=== PATIENT | male | born 1935 | race Caucasian/White ===

== ENCOUNTER 2016-08-07 15:52 | Inpatient (IN) | payer OTHER ==
[~2016-08-07] VITALS: Ht 182.9 cm; Wt 86.0 kg
[~2016-08-07 15:52] MED LIST: ACET1TAB84 PO; ASPEC81 PO; CALC625T13 PO; CLOP1TAB15 PO; COEN1CAP17 PO; DOCU-94 PO; FINA5TAB PO; FLV1 PO; GABA-113 PO; GLC500 PO; LDDP5 TD; LISI-729 PO; LPR25 PO; OMEG10007 PO; PANT40TA PO; ROSU40TA PO; TERA5CAP PO; VLTG EXT
--- NOTE | 2016-08-07 17:05 | EMERGENCY ROOM VISIT NOTE ---
History Report prepared by Chi: Kalia Amezquita Under the Supervision of: Dr. Fabien Vides M.D. First contact with patient: 16:34 Chief Complaint: GI ASSESSMENT Stated Complaint: TARRY STOOL Nursing Triage Summary: black tarry stools for 3 wks, pt on plavix, pt was taking 2 baby asa every night but stopped 1 wk ago, went to see cardiology today whom sent pt to er, pt c/o sob History of Present Illness The patient is a 81 year old male who presents to the Emergency Room with complaints of persistent black stools occurring for the past few weeks. As per , he looks paler than normal. The patient denies any abdominal pain. He is on Plavix for a cardiac history. The patient had a bypass surgery in February 2016. There was no valve replacement. He had been doing well up until these past few weeks. He denies any prior history of bleeding. He is on Pantoprazole for antiulcer. For the past few days, the patient has been having intermittent left sided chest pain, shortness of breath, and dizziness. He has worsening chest pain and shortness of breath with exertion. The chest pain occurs with standing up from chair and getting out of bed. He describes the chest pain to be sharp which lasts for a few seconds. He denies any similar chest pain in the past. The shortness of breath normally lasts for a few minutes. He has improvement in chest pain and shortness of breath with rest. He has a history of asbestosis but denies any other lung disease. He denies any inhaler use. Yesterday, he felt very lightheaded at cardiac rehab. The patient recently stopped taking baby aspirin. The patient denies any fevers, urinary symptoms, or any other complaints. Source of History: patient, spouse/significant other Onset: a few weeks ago Position: other (global) Quality: other (black stools) Timing: other (persistent) Associated Symptoms: + SOB, + chest pain, No abdominal pain, No fevers, No urinary symptoms Review of Systems See HPI for pertinent positives & negatives. A total of 10 systems reviewed and were otherwise negative. Past Medical & Surgical Medical Problems: (1) CVA (cerebral vascular accident) (2) Hypertension (3) Pulmonary asbestosis (4) Unstable angina Surgical Problems: (1) Hx of angioplasty (2) S/P CABG x 5 Social History Problems: (1) History of angioplasty Family History Heart disease Social History Smoking Status: Former Smoker Alcohol Use: occasionally Drug Use: none Marital Status: Housing Status: lives with family Occupation Status: retired Current/Historical Medications Scheduled Aspirin Enteric Coated (Ecotrin Or Generic), 162 MG PO DAILY Clopidogrel (Plavix), 75 MG PO QAM Coenzyme Q10 (Ubidecarenone) (Co Q 10), 100 MG PO BID Docusate Sodium (Colace), 1 CAP PO BID Fiber (Fiber Select Gummies), 1 TAB PO DAILY Finasteride (Proscar), 5 MG PO HS Fish Oil ([place]-3), 1 CAP PO QAM Folic Acid (Folic Acid), 2 MG PO QAM Gabapentin (Neurontin), 300 MG PO BID Metformin HCl (Metformin HCl), 500 MG PO BID Metoprolol Tartrate (Lopressor), 25 MG PO BID Pantoprazole (Protonix), 40 MG PO QAM Rosuvastatin Calcium (Crestor), 40 MG PO HS Terazosin (Hytrin), 5 MG PO QPM Scheduled PRN Acetaminophen (Tylenol Arthritis Ext Rel), 650 MG PO Q8H PRN for Pain Diclofenac Sod (Voltaren), 2 APPLN EXT QID PRN for Pain Lidocaine (Lidocaine), 1 PATCH TD DAILY PRN for PRN Allergies Coded Allergies: Tramadol (Unverified Allergy, Unknown, Stroke-like symptoms, 08/07/16) Hydrocodone (Unverified Adverse Reaction, Unknown, Vicodin = stroke-like sxs, 08/07/16) Physical Exam Vital Signs Date Time Temp Pulse Resp B/P Pulse Ox O2 Delivery O2 Flow Rate FiO2 08/07/16 20:08 80 18 192/108 92 Room Air 08/07/16 18:28 72 18 149/84 94 Room Air 08/07/16 17:26 71 18 144/88 94 Room Air 08/07/16 17:02 71 08/07/16 15:56 36.4 82 18 161/82 96 Room Air Physical Exam GENERAL: Patient is in no acute distress. HEENT: No acute trauma, normocephalic atraumatic, mucous membranes moist, no nasal congestion, no scleral icterus. NECK: No stridor, no adenopathy, no meningismus, trachea is midline. LUNGS: Clear to auscultation bilaterally, no wheeze, no rhonchi, breath sounds equal. HEART: Without murmurs gallops or rubs, regular rate and rhythm. ABDOMEN: Soft, nontender, bowel sounds positive, no hernias, no peritonitis. RECTAL: Brown stool, heme negative. EXTREMITIES: No cyanosis or edema, full range of motion of all the joints without pain or difficulty, no signs for acute trauma. NEUROLOGIC: Oriented x 3, no acute motor or sensory deficits, no focal weakness. SKIN: No rash, no jaundice, no diaphoresis. Medical Decision & Procedures ER Provider Diagnostic Interpretation: X-ray results as stated below per interpretation by me and the radiologist: CHEST ONE VIEW PORTABLE HISTORY: EVALUATE ALTERED MENTAL STATUS/WEAKNESS COMPARISON: Chest 12/01/2015. FINDINGS: The heart is borderline enlarged. There are poststernotomy changes. No pleural effusions. No pneumothorax. No new focal lung consolidations. Stable calcified pleural plaques/nodules are again noted. IMPRESSION: No acute process. Electronically signed by: Dav Sorenson M.D. 08/07/2016 5:16 PM Dictated Date/Time: 08/07/2016 5:15 PM Laboratory Results 08/07/16 16:57 Red Blood Count 4.66, Mean Corpuscular Volume 86.5, Mean Corpuscular Hemoglobin 28.5, Mean Corpuscular Hemoglobin Concent 33.0, Mean Platelet Volume 10.6, Neutrophils (%) (Auto) 50.9, Lymphocytes (%) (Auto) 39.2, Monocytes (%) (Auto) 6.4, Eosinophils (%) (Auto) 3.1, Basophils (%) (Auto) 0.2, Neutrophils # (Auto) 3.08, Lymphocytes # (Auto) 2.37, Monocytes # (Auto) 0.39, Eosinophils # (Auto) 0.19, Basophils # (Auto) 0.01 08/07/16 16:57 Test 08/07/16 16:57 08/07/16 17:30 White Blood Count 6.05 K/uL (4.8-10.8) Red Blood Count 4.66 M/uL (4.7-6.1) Hemoglobin 13.3 g/dL (14.0-18.0) Hematocrit 40.3 % (42-52) Mean Corpuscular Volume 86.5 fL (80-100) Mean Corpuscular Hemoglobin 28.5 pg (25-34) Mean Corpuscular Hemoglobin Concent 33.0 g/dl (32-36) Platelet Count 164 K/uL (130-400) Mean Platelet Volume 10.6 fL (7.4-10.4) Neutrophils (%) (Auto) 50.9 % Lymphocytes (%) (Auto) 39.2 % Monocytes (%) (Auto) 6.4 % Eosinophils (%) (Auto) 3.1 % Basophils (%) (Auto) 0.2 % Neutrophils # (Auto) 3.08 K/uL (1.4-6.5) Lymphocytes # (Auto) 2.37 K/uL (1.2-3.4) Monocytes # (Auto) 0.39 K/uL (0.11-0.59) Eosinophils # (Auto) 0.19 K/uL (0-0.5) Basophils # (Auto) 0.01 K/uL (0-0.2) RDW Standard Deviation 50.9 fL (36.4-46.3) RDW Coefficient of Variation 16.0 % (11.5-14.5) Immature Granulocyte % (Auto) 0.2 % Immature Granulocyte # (Auto) 0.01 K/uL (0.00-0.02) Prothrombin Time 11.1 SECONDS (9.0-12.0) Prothromb Time International Ratio 1.0 (0.9-1.1) Activated Partial Thromboplast Time 26.1 SECONDS (21.0-31.0) Partial Thromboplastin Ratio 1.0 Anion Gap 9.0 mmol/L (3-11) Est Creatinine Clear Calc Drug Dose 60.5 ml/min Estimated GFR () 73.1 Estimated GFR (Non- 63.1 BUN/Creatinine Ratio 16.8 (10-20) Calcium Level 9.9 mg/dl (8.5-10.1) Magnesium Level 2.0 mg/dl (1.8-2.4) Total Bilirubin 0.5 mg/dl (0.2-1) Aspartate Amino Transf (AST/SGOT) 21 U/L (15-37) Alanine Aminotransferase (ALT/SGPT) 24 U/L (12-78) Alkaline Phosphatase 48 U/L (45-117) Troponin I < 0.015 ng/ml (0-0.045) Total Protein 7.2 gm/dl (6.4-8.2) Albumin 3.7 gm/dl (3.4-5.0) Globulin 3.5 gm/dl (2.5-4.0) Albumin/Globulin Ratio 1.1 (0.9-2) Thyroid Stimulating Hormone (TSH) 1.470 uIu/ml (0.300-4.500) Urine Color YELLOW Urine Appearance CLEAR (CLEAR) Urine pH 7.0 (4.5-7.5) Urine Specific [place] 1.012 (1.000-1.030) Urine Protein NEG (NEG) Urine Glucose (UA) NEG (NEG) Urine Ketones NEG (NEG) Urine Occult Blood NEG (NEG) Urine Nitrite NEG (NEG) Urine Bilirubin NEG (NEG) Urine Urobilinogen NEG (NEG) Urine Leukocyte Esterase NEG (NEG) Laboratory results reviewed by me. ECG Indication: chest pain, SOB/dyspnea Rate (beats per minute): 73 Rhythm: normal sinus Findings: ST depression (inferior and lateral), no ectopy Comparison ECG Date: December 02, 2015 Change: ST flattening is new when compared to December 02, 2015. ED Course 1634: The patient was evaluated in room A02. A complete history and physical exam was performed. 181: Upon reexamination the patient is doing well. I discussed results and treatment plan with the patient. He verbalizes agreement and understanding. The patient will be evaluated for further management. 182: I discussed the patient's case [facility] Medical Decision Differential diagnosis includes but is not limited to GI bleed, anemia, electrolyte imbalance, medication reaction, cardiac ischemia, CHF, pneumonia. There is no leukocytosis or concerning anemia. No significant electrolyte abnormality, kidney failure, hepatitis. The patient appears to be in a euthyroid state. EKG shows a sinus rhythm, no acute ischemic change. Cardiac enzyme testing 1 is not consistent with acute cardiac injury. Today's EKG is different than his most recent EKG, however, I believe he has had cardiac bypass surgery since his most recent EKG. Chest x-ray does not show pneumonia or CHF. Urinalysis does not show infection. There is no coagulopathy. Rectal exam today is heme-negative. The patient presents with chest pain and dyspnea that is exertional. He has a lengthy cardiac history. I do think further cardiac workup for his symptoms is warranted. I spoke with the patient and to case management. The on-call hospitalist was consulted. Consults Time Called: 1819 Consulting Physician: [facility] Returned Call: 1824 I discussed the patient's case with Dr. Downing, from [facility]. Impression Primary Impression: Precordial chest pain Additional Impression: SOB (shortness of breath) Scribe Attestation The scribe's documentation has been prepared under my direction and personally reviewed by me in its entirety. I confirm that the note above accurately reflects all work, treatment, procedures, and medical decision making performed by me. Departure Information Dispostion Being Evaluated By Hospitalist Referrals No Doctor, Assigned (PCP) Patient Instructions My [facility] Health Problem Qualifiers
--- NOTE | 2016-08-07 17:17 | DIAGNOSTIC IMAGING REPORT ---
CHEST ONE VIEW PORTABLE HISTORY: EVALUATE ALTERED MENTAL STATUS/WEAKNESS COMPARISON: Chest 12/01/2015. FINDINGS: The heart is borderline enlarged. There are poststernotomy changes. No pleural effusions. No pneumothorax. No new focal lung consolidations. Stable calcified pleural plaques/nodules are again noted. IMPRESSION: No acute process. Electronically signed by: Dav Sorenson M.D. 08/07/2016 5:16 PM Dictated Date/Time: 08/07/2016 5:15 PM
[2016-08-07 17:19] LABS: BASO % 0.2 %; BASO ABS # 0.01 K/uL (0-0.2); COMPLETE YES; EOS % 3.1 %; HEMATOCRIT 40.3 % (42-52); IG% 0.2 %; LYMPH % 39.2 %; LYMPH ABS # 2.37 K/uL (1.2-3.4); MEAN CELL VOLUME 86.5 fL (80-100); MEAN CORPUSCULAR HEMOGLOBIN 28.5 pg (25-34); MEAN PLATELET VOLUME 10.6 fL (7.4-10.4); MONO % 6.4 %; NEUT % 50.9 %; PLATELET COUNT 164 K/uL (130-400); RED BLOOD COUNT 4.66 M/uL (4.7-6.1); WHITE BLOOD COUNT 6.05 K/uL (4.8-10.8)
[2016-08-07 17:29] LABS: PROTHROMBIN TIME (PATIENT) 11.1 SECONDS (9.0-12.0)
[2016-08-07] MEDS ORDERED: FLV1 PO (17:32)
[2016-08-07] MEDS ORDERED: ASPI81TA21 PO (17:32)
[2016-08-07] MEDS ORDERED: LDDP5 TD (17:32)
[2016-08-07] MEDS ORDERED: FIBE1CHW PO (17:33)
[2016-08-07 17:41] LABS: ALT/SGPT 24 U/L (12-78); BLOOD UREA NITROGEN 19 mg/dl (7-18); BUN/CREATININE RATIO 16.8 (10-20); CALCIUM 9.9 mg/dl (8.5-10.1); CARBON DIOXIDE 27 mmol/L (21-32); CHLORIDE 105 mmol/L (98-107); GLUCOSE 97 mg/dl (70-99); POTASSIUM 3.9 mmol/L (3.5-5.1); SODIUM 141 mmol/L (136-145)
[2016-08-07 17:50] LABS: URINE APPEARANCE CLEAR (CLEAR); URINE BILIRUBIN NEG (NEG); URINE COLOR YELLOW; URINE NITRITE NEG (NEG); URINE SPECIFIC GRAVITY 1.012 (1.000-1.030); UROBILINOGEN NEG (NEG); ZZUR CULT IF INDIC CLEAN CATCH NO
[2016-08-07 17:52] LABS: ALB/GLOB RATIO 1.1 (0.9-2); ALKALINE PHOSPHATASE 48 U/L (45-117); AST/SGOT 21 U/L (15-37)
[2016-08-07 18:09] LABS: MANUAL MICROSCOPIC REQUIRED? NO; REVIEW REQ? NO
[2016-08-07] MEDS ORDERED: GLUCOSE 10 TABS/TUBE PO PRN (18:30)
[2016-08-07] MEDS ORDERED: DEXTROSE 50% 50 ML SYR IV PRN (18:30)
[2016-08-07] MEDS ORDERED: GLUCAGON FOR INJ 1 MG VIAL SQ PRN (18:30)
[2016-08-07] MEDS ORDERED: NITROGLYCERIN 0.4 MG SL PER TAB CHARGE SL PRN (18:30)
[2016-08-07] MEDS ORDERED: LIDODERM (LIDOCAINE) PATCH 5% TD PRN (18:30)
[2016-08-07] MEDS ORDERED: DICLOFENAC SOD 1% GEL 100 GM TUBE EXT PRN (18:30)
[2016-08-07] MEDS ORDERED: GLUCOSE 40% GEL 15 GM TUBE PO PRN (18:30)
--- NOTE | 2016-08-07 20:26 | History and Physical ---
History & Physical Date & Time of Service: Aug 07, 2016 at 19:41 Chief Complaint: Tarry Stool, left sided chest pain Primary Care Physician: Abram Garcia DO History of Present Illness Source: patient, spouse This is a 81 y/o male with hx of CABG on Feb 2016 presented to the ED complaining of tarry stool and left sided chest pain. Patient states that he is been having intermittent left sided chest pain for 3 weeks now. He also felt lightheadedness yesterday at the cardiac rehab, which prompted him to call the cardiology clinic. He was seen by the PA this morning, who sent her to the ED. Describes the pain as sharp and stabbing, and usually lasts for few seconds. He states that the pain is random and he couldn't associate with anything. He would have pain at rest also. He usually would have 2-3 episodes of chest pain every other day. Denies having similar pain in the past. Also complains of dyspnea on exertion, nausea and dizziness. He states that even walking from his bedroom to the kitchen, which is about 30feets, he would have SOB. Denies SOB at rest. He also been noticing black stool and denies any prior history of bleeding. Denies any abdominal pain. Patient states that he recently stop taking aspirin. He used to see Dr. Crowell and then Dr. Portillo and now sees Dr. Gongora. He was on vacation and haven't been following up with the cardiology. Past Medical/Surgical History Medical Problems: (1) Hypertension Status: Chronic (2) Pulmonary asbestosis Status: Resolved Surgical Problems: (1) Hx of angioplasty Status: Chronic (2) S/P CABG x 5 Status: Resolved Social History Problems: (1) History of angioplasty Status: Chronic Family History Heart disease Social History Smoking Status: Former Smoker Drug Use: none Marital Status: Occupational Status: retired Immunizations History of Influenza Vaccine: Yes History of Tetanus Vaccine?: Yes History of Pneumococcal: Yes History of Hepatitis B Vaccine: No Multi-Drug Resistant Organisms History of MDRO: No Allergies Coded Allergies: Tramadol (Unverified Allergy, Unknown, Stroke-like symptoms, 08/07/16) Hydrocodone (Unverified Adverse Reaction, Unknown, Vicodin = stroke-like sxs, 08/07/16) Home Medications Scheduled Aspirin Enteric Coated (Ecotrin Or Generic), 162 MG PO DAILY Clopidogrel (Plavix), 75 MG PO QAM Coenzyme Q10 (Ubidecarenone) (Co Q 10), 100 MG PO BID Docusate Sodium (Colace), 1 CAP PO BID Fiber (Fiber Select Gummies), 1 TAB PO DAILY Finasteride (Proscar), 5 MG PO HS Fish Oil ([place]-3), 1 CAP PO QAM Folic Acid (Folic Acid), 2 MG PO QAM Gabapentin (Neurontin), 300 MG PO BID Metformin HCl (Metformin HCl), 500 MG PO BID Metoprolol Tartrate (Lopressor), 25 MG PO BID Pantoprazole (Protonix), 40 MG PO QAM Rosuvastatin Calcium (Crestor), 40 MG PO HS Terazosin (Hytrin), 5 MG PO QPM Scheduled PRN Acetaminophen (Tylenol Arthritis Ext Rel), 650 MG PO Q8H PRN for Pain Diclofenac Sod (Voltaren), 2 APPLN EXT QID PRN for Pain Lidocaine (Lidocaine), 1 PATCH TD DAILY PRN for PRN Review of Systems Constitutional: + weakness, No chills, No fever, No sweats, No weight loss Eyes: No worsening of vision Respiratory: + dyspnea on exertion, + shortness of breath, No cough, No dyspnea at rest, No sputum, No wheezing Cardiovascular: + chest pain (left sided chest pain), No edema Abdomen: + nausea, No constipation, No diarrhea, No pain, No vomiting Musculoskeletal: No muscle pain Genitourinary - Male: No dysuria Neurologic: + weakness, No numbness/tingling Endocrine: No fatigue Integumentary: No rash Physical Exam Vital Signs Date Time Temp Pulse Resp B/P Pulse Ox O2 Delivery O2 Flow Rate FiO2 08/07/16 18:28 72 18 149/84 94 Room Air 08/07/16 17:26 71 18 144/88 94 Room Air 08/07/16 17:02 71 08/07/16 15:56 36.4 82 18 161/82 96 Room Air General Appearance: WD/WN, no apparent distress Head: normocephalic, atraumatic Eyes: normal inspection, PERRL, EOMI Neck: supple, trachea midline Respiratory/Chest: chest non-tender, lungs clear, normal breath sounds, no respiratory distress, no accessory muscle use Cardiovascular: regular rate, rhythm, no edema, no murmur, normal peripheral pulses Abdomen/GI: normal bowel sounds, non tender, soft Extremities/Musculoskelatal: normal inspection, no pedal edema, non-tender Neurologic/Psych: alert, normal mood/affect, oriented x 3 Skin: normal color, warm/dry, no rash Diagnostics Laboratory Results Results Past 24 Hours Test 08/07/16 16:57 08/07/16 17:30 Range/Units White Blood Count 6.05 4.8-10.8 K/uL Red Blood Count 4.66 4.7-6.1 M/uL Hemoglobin 13.3 14.0-18.0 g/dL Hematocrit 40.3 42-52 % Mean Corpuscular Volume 86.5 80-100 fL Mean Corpuscular Hemoglobin 28.5 25-34 pg Mean Corpuscular Hemoglobin Concent 33.0 32-36 g/dl Platelet Count 164 130-400 K/uL Mean Platelet Volume 10.6 7.4-10.4 fL Neutrophils (%) (Auto) 50.9 % Lymphocytes (%) (Auto) 39.2 % Monocytes (%) (Auto) 6.4 % Eosinophils (%) (Auto) 3.1 % Basophils (%) (Auto) 0.2 % Neutrophils # (Auto) 3.08 1.4-6.5 K/uL Lymphocytes # (Auto) 2.37 1.2-3.4 K/uL Monocytes # (Auto) 0.39 0.11-0.59 K/uL Eosinophils # (Auto) 0.19 0-0.5 K/uL Basophils # (Auto) 0.01 0-0.2 K/uL RDW Standard Deviation 50.9 36.4-46.3 fL RDW Coefficient of Variation 16.0 11.5-14.5 % Immature Granulocyte % (Auto) 0.2 % Immature Granulocyte # (Auto) 0.01 0.00-0.02 K/uL Prothrombin Time 11.1 9.0-12.0 SECONDS Prothromb Time International Ratio 1.0 0.9-1.1 Activated Partial Thromboplast Time 26.1 21.0-31.0 SECONDS Partial Thromboplastin Ratio 1.0 Sodium Level 141 136-145 mmol/L Potassium Level 3.9 3.5-5.1 mmol/L Chloride Level 105 98-107 mmol/L Carbon Dioxide Level 27 21-32 mmol/L Anion Gap 9.0 3-11 mmol/L Blood Urea Nitrogen 19 7-18 mg/dl Creatinine 1.10 0.60-1.40 mg/dl Est Creatinine Clear Calc Drug Dose 60.5 ml/min Estimated GFR () 73.1 Estimated GFR (Non- 63.1 BUN/Creatinine Ratio 16.8 10-20 Random Glucose 97 70-99 mg/dl Calcium Level 9.9 8.5-10.1 mg/dl Magnesium Level 2.0 1.8-2.4 mg/dl Total Bilirubin 0.5 0.2-1 mg/dl Aspartate Amino Transf (AST/SGOT) 21 15-37 U/L Alanine Aminotransferase (ALT/SGPT) 24 12-78 U/L Alkaline Phosphatase 48 45-117 U/L Troponin I < 0.015 0-0.045 ng/ml Total Protein 7.2 6.4-8.2 gm/dl Albumin 3.7 3.4-5.0 gm/dl Globulin 3.5 2.5-4.0 gm/dl Albumin/Globulin Ratio 1.1 0.9-2 Thyroid Stimulating Hormone (TSH) 1.470 0.300-4.500 uIu/ml Urine Color YELLOW Urine Appearance CLEAR CLEAR Urine pH 7.0 4.5-7.5 Urine Specific [place] 1.012 1.000-1.030 Urine Protein NEG NEG Urine Glucose (UA) NEG NEG Urine Ketones NEG NEG Urine Occult Blood NEG NEG Urine Nitrite NEG NEG Urine Bilirubin NEG NEG Urine Urobilinogen NEG NEG Urine Leukocyte Esterase NEG NEG CXR normal Normal EKG Impression Assessment and Plan This is a 81 y/o male with hx of CABG on Feb 2016 presented to the ED with tarry stool and left sided chest pain. Patient is admitted to the Tele for chest pain rule out. 1. Chest pain - Given the patient's cardiac history and typical chest pain, patient will be admitted for chest pain rule out. - Initially troponin is negative. EKG showed normal sinus rhythm - Will trend the cardiac enzymes. - Nitro for chest pain as needed - Will continue ASA 162mg and plavix 75mg - NPO after midnight for any possible procedure tomorrow am - Cardiology (Dr. Gongora) is consulted and will await for his recommendation 2. CAD - Will continue to Metoprolol 25mg BID - Patient states that he was on Lisinopril before but was d/c and he is not sure of the reason. - C/w ASA and Plavix - C/w Crestor 40mg 3. Tarry Stool - Patient denies any abdominal pain. - Stool was guaiac negative - For now will continue to monitor - C/w Protonix 40mg daily 4. DMII - Will hold Metformin - Will start him on sliding scale 5. DVT prophylaxis - Heparin 7. Code Status - Full code I agree with Resident assessment and plan and have seen and examined pt myself Pt with cardiac hx last Feb 2016 Presents with typical chest pain and sob on exertion States did not take ASA for past two weeks due to dark stools EKG unremarkable Trops neg, cont to trend Consult telescope repairer NPO after [place] Level of Care Telemetry Resuscitation Status FULL RESUSCITATION VTE Prophylaxis VTE Risk Assessment Done? Y/N: Yes Risk Level: Moderate Given or contraindicated: Unfractionated heparin SQ Note About 60minutes
[2016-08-07] MEDS ORDERED: FINASTERIDE 5 MG TAB PO SCH (21:00)
[2016-08-07] MEDS ORDERED: ROSUVASTATIN CALCIUM 20 MG TAB PO SCH (21:00)
[2016-08-07] MEDS: INSULIN ASPART 100 UNITS/ML 3 ML PEN SC SCH (22:13)
[2016-08-07] MEDS: DOCUSATE SODIUM 100 MG CAP PO SCH (22:15)
[2016-08-07] MEDS: METOPROLOL TARTRATE 25 MG TAB PO SCH (22:16)
[2016-08-07] MEDS: GABAPENTIN 300 MG CAP PO SCH (22:16)
[2016-08-07] MEDS: HEPARIN SOD 5000 UNIT/0.5 ML CARP SQ SCH (22:17)
[2016-08-07 22:56] VITALS: BP 183/78; PULSE 69; TEMP 36.5; O2SAT 97; Ht 182.9 cm; Wt 86.0 kg
[2016-08-07 23:56] VITALS: BP 128/69; PULSE 74; TEMP 36.4; O2SAT 93
[2016-08-08] MEDS: ACETAMINOPHEN 325 MG TAB PO PRN ×2 (00:25→08:49)
[2016-08-08 04:05] VITALS: BP 145/78; PULSE 68; TEMP 36.5; O2SAT 95
[2016-08-08 06:51] LABS: HEMATOCRIT 41.2 % (42-52); MEAN CELL VOLUME 86.6 fL (80-100); MEAN CORPUSCULAR HEMOGLOBIN 28.2 pg (25-34); MEAN CORPUSCULAR HGB CONC 32.5 g/dl (32-36); MEAN PLATELET VOLUME 10.6 fL (7.4-10.4); PLATELET COUNT 154 K/uL (130-400); RED BLOOD COUNT 4.76 M/uL (4.7-6.1); WHITE BLOOD COUNT 5.64 K/uL (4.8-10.8)
[2016-08-08] MEDS: INSULIN ASPART 100 UNITS/ML 3 ML PEN SC SCH ×3 (07:00→16:15)
[2016-08-08 07:19] LABS: BLOOD UREA NITROGEN 17 mg/dl (7-18); BUN/CREATININE RATIO 17.4 (10-20); CALCIUM 9.2 mg/dl (8.5-10.1); CARBON DIOXIDE 28 mmol/L (21-32); CHLORIDE 107 mmol/L (98-107); GLUCOSE 100 mg/dl (70-99); POTASSIUM 3.8 mmol/L (3.5-5.1); SODIUM 143 mmol/L (136-145)
[2016-08-08 07:23] LABS: CKMB/CK RATIO 1.7 (0-3.0)
[2016-08-08 08:47] VITALS: BP 143/80; PULSE 74; TEMP 36.4; O2SAT 93
[2016-08-08] MEDS ORDERED: PANTOprazole SOD 40 MG TAB PO SCH (09:00)
[2016-08-08] MEDS ORDERED: CLOPIDOGREL BISULFATE 75 MG TAB PO SCH (09:00)
[2016-08-08] MEDS ORDERED: ASPIRIN 81 MG ECTAB PO SCH (09:00)
[2016-08-08 11:10] VITALS: BP 170/84; PULSE 67; TEMP 36.4; O2SAT 96
[2016-08-08] MEDS: METOPROLOL TARTRATE 25 MG TAB PO SCH (11:18)
[2016-08-08] MEDS: HEPARIN SOD 5000 UNIT/0.5 ML CARP SQ SCH (11:20)
--- NOTE | 2016-08-08 12:03 | CARDIOLOGY CONSULTATION ---
DATE OF CONSULTATION: 08/08/2016 CONSULTATION REQUESTED BY: Dr. Downing. REASON FOR CONSULTATION: Chest pain. HISTORY OF PRESENT ILLNESS: Mr. Figueroa is a very pleasant 81-year-old man with a complex cardiac history, previously followed by Dr. Portillo, most recently seen by me in the clinical laboratory technologist back in February, who was sent to the Emergency Department from outpatient cardiology clinic yesterday in the setting of chest pain and questionable dark tarry stools. Cardiology consulted today for further management. Please see below for further details of the patient's complex prior history. Briefly, the patient has severe coronary artery disease, status post multiple prior PCIs to his RCA with recurrent in-stent restenosis. Has underwent CABG and most recently redo CABG in 02/2016. More recently, the patient had been doing well, had been participating with cardiac rehab without issues, but over the last several weeks has been having intermittent dyspnea on exertion, states he can walk across his home before he gets short of breath. With that, he has had sharp jabbing pain. This does not feel like prior pain he has had with his angina requiring prior stents and bypass. Denies any palpitations, any heart failure symptoms, any fevers, chills, or other significant changes in his medicines. Around this time he has noted occasional dark tarry stools, maybe once or twice over the last several weeks. Has not noticed any nikko red stools. No history of prior GI bleeds. Of note, the patient had been on Plavix and aspirin 162 along with fish oil. He had mentioned this to his brother who is a pharmacist, who recommended discontinuing aspirin and the fish oil and has been on Plavix alone for the last week. He presented to cardiology clinic yesterday and endorsed these symptoms. There, he was hemodynamically stable and not orthostatic, had an EKG which was largely unremarkable, but due to concern for ongoing symptoms in the setting of questionable lightheadedness, he was sent to the Emergency Department. In the ED, the patient was hemodynamically stable. EKG was unremarkable and serial cardiac enzymes have been negative. His hemoglobin was 13.4, that is down from prior 14 -15 in the outpatient setting 4 months ago. Hemeoccult was negative. Overnight,t he patient has been chest pain free. He has had no events on telemetry and he is feeling at his baseline this morning. PAST MEDICAL HISTORY: 1. Coronary artery disease. a. Initial CABG x2 in May 1985 (CLARKE to LAD, vein graft to circumflex). b. Positive stress test in 10/2014, showing inferior posterior wall motion abnormality. Cardiac catheterization in 06/2015 showed a 70% ostial in-stent stenosis in his circumflex and a 99% ostial in-stent stenosis in the RCA. Vein graft to circumflex was presumed to be occluded. The patient underwent complex PCI with rotational atherectomy to RCA at [facility] with placement of a 3.0 x 15 mm drug-eluting stent to the ostial RCA. c. In 01/2016, again had in-stent restenosis of the proximal and mid RCA, again treated with Rotablator and had 2 drug-eluting stents, 3 x 38 and 3 x 28 Xience placed to his RCA. d. Most recently in 02/2016, repeat cardiac catheterization in the setting of angina showed again ostial RCA stenosis with 70-80% ostial circumflex disease and moderate to large OM disease. The patient was referred to [facility] and had a redo CABG with vein graft to OM and vein graft to distal RCA. 2. Type 2 diabetes. 3. Hypertension. 4. Hyperlipidemia. 5. Gastroesophageal reflux disease. 6. Peripheral vascular disease. 7. BPH. 8. Arthritis. 9. Lumbar radiculopathy. FAMILY HISTORY: He has a twin brother who has coronary artery disease and has had redo CABG x2 as well. SOCIAL HISTORY: Lives with his . He is retired. He is a remote smoker. Drinks occasionally. HOME MEDICATIONS: Include aspirin 81, Plavix 75, Protonix 40, finasteride 5, Colace 100, fiber, coenzyme Q10, fish oil, folic acid, Tylenol extra strength, Crestor 40, metoprolol 25 b.i.d., metformin, diclofenac, gabapentin. ALLERGIES: No known drug allergies. PHYSICAL EXAMINATION: VITAL SIGNS: Temperature 36.4, pulse 74, blood pressure 143/80, satting 93% on room air. GENERAL: The patient appears comfortable, in no acute distress. HEENT: Sclerae are anicteric. Oropharynx is clear. Mucous membranes are moist. NECK: Supple with no lymphadenopathy. LUNGS: Clear to auscultation bilaterally. CARDIAC: He has distant heart sounds but is regular. There are no appreciable murmurs, rubs or gallops. ABDOMEN: Soft, nontender, nondistended, with positive bowel sounds. EXTREMITIES: Warm. He has intact 2+ radial pulses bilaterally and intact DP and PT pulses bilaterally. SKIN: Shows no rashes or lesions. NEUROLOGIC: He is grossly nonfocal. PSYCHIATRIC: He is alert and oriented x3. Mood and affect are appropriate. DATA: White blood cell count 6, hemoglobin of 13.3, platelets of 164. INR 1.0. Sodium 143, potassium 3.8, BUN 17, creatinine of 1.0. Troponin has been negative x3. LFTs within normal limits. TSH within normal limits. EKG showed sinus rhythm with nonspecific T-wave abnormality in lateral leads. Chest x-ray showed no acute cardiopulmonary process. IMPRESSION AND PLAN: 1. Atypical chest pain. 2. History of severe coronary artery disease, status post redo coronary artery bypass graft 5 months ago. 3. Type 2 diabetes, not on insulin therapy. 4. Hypertension. 5. Hyperlipidemia. Patient here with several weeks of dyspnea on exertion in the setting of atypical chest pain and initial concern for possible GI bleed. The patient's initial Hemoccult test in the ED was negative for blood and blood counts are unchanged from recent baseline. No evidence of acute GI bleed at this time. In regard to the patient's chest pain, there is no significant evidence of acute coronary syndrome and symptoms are not like his prior typical angina. Suspicion at this point for cardiac disease causing his current symptoms is relatively low. However, in the setting of the patient's severe coronary artery disease in the past requiring multiple recent interventions, I feel that further risk stratification is warranted. We will plan to obtain a repeat exercise stress echocardiogram. If test is largely unremarkable or only prior fixed inferior defect, we will plan to continue medical management. If any high risk findings, would plan on repeat cardiac catheterization. In the interim, continue on current cardiac meds. snf, would plan to restart on aspirin and continue on Plavix. Only needs to take aspirin 81 mg. We will continue to follow while the patient is in the hospital. Thank you for allowing us to participate in the care of this patient. [facility] HOSPITALMaureen
[2016-08-08 12:06] VITALS: BP_SYST 159; BP_SYST 174; BP_DIAS 74; BP_DIAS 84
[2016-08-08 14:18] VITALS: BP 168/69; PULSE 65; O2SAT 95
[2016-08-08] MEDS: GABAPENTIN 300 MG CAP PO SCH (14:22)
[2016-08-08] MEDS: DOCUSATE SODIUM 100 MG CAP PO SCH (14:23)
[2016-08-08] MEDS ORDERED: PERFLUTREN LIPID MICROSPHERE (DEFINITY) IV ONE (14:46)
[2016-08-08 14:59] LABS: CKMB/CK RATIO 1.6 (0-3.0)
--- NOTE | 2016-08-08 16:44 | Discharge Instructions ---
Discharge Instructions Date of Service Aug 08, 2016. Admission Reason for Admission: Chest Pain Discharge Discharge Diagnosis / Problem: atypical chest pain Discharge Goals Goal(s): Prevent Disease Progression Activity Recommendations Activity Limitations: resume your previous activity Driving or Machine Use: no limitations . Instructions / Follow-Up Instructions / Follow-Up Primary care physician in 1 week Current Hospital Diet Patient's current hospital diet: AHA Diet (Heart Healthy) Discharge Diet Recommended Diet: AHA Diet (Heart Healthy), Diabetes Type 2 Diet Procedures Procedures Performed: stress echo negative for ischemia Pending Studies Studies pending at discharge: no Medical Emergencies . Who to Call and When: Medical Emergencies: If at any time you feel your situation is an emergency, please call 911 immediately. . Non-Emergent Contact Non-Emergency issues call your: Primary Care Provider . . "Provider Documentation" section prepared by Abram Catherine. VTE Core Measure Inpt VTE Proph given/why not?: Unfractionated heparin SQ
[2016-08-08 16:56] VITALS: BP 168/69; PULSE 65; TEMP 36.4; O2SAT 95
--- NOTE | 2016-08-08 19:05 | EXERCISE STRESS ECHO ---
*NOTICE TO RECEIVING DEMOCRAT AGENCY This information is strictly Confidential and protected under [place] law. [place] law prohibits you from making any further disclosure of this information unless further disclosure is expressly permitted by the written consent of the person to whom it pertains or is authorized by law. A general authorization for the release of medical or other information is not sufficient for this purpose. Hospital accepts no responsibility if the information is made available to any other person, INCLUDING THE PATIENT. Interpretation Summary * Name: DAMIAN BAH Study Date: 08/08/2016 11:50 AM BP: 159/78 mmHg * Patient Location: .2T\S\S234\S\1 HR: 62 * : 1935 (M/d/yyyy) Gender: Male Height: 72 in * Age: 81 yrs Ethnicity: CA Weight: 189 lb * Ordering Physician: Agustin Gongora * Referring Physician: Agustin Gongora * Performed By: Shukri Kapadia RCS * * Reason For Study: Chest Pain * BSA: 2.1 m2 * -- Conclusions -- * Stress Echo: * 1. There were no inducible ischemic changes on stress echo imaging at 82% MPHR. Cannot rule out ischemic changes at faster heart rates. Target heart rate was not attained. * 2. Nondiagnostic exercise ECG as target heart rate was not attained. * 3. No chest pain reported. * 4. Hypertensive response to exercise. * 5. Fair exercise tolerance. * 6. No arrhythmia. * 7. Technically difficult study, enhanced with IV Definity. * Echo: * 1. Normal left ventricular size with low-normal systolic function. Estimated EF 50-55%. Akinesis of basal septum and basal inferior wall. Hypokinesis of inferolateral wall and mid inferior wall segments. Mild concentric left ventricular hypertrophy. Type 1 diastolic dysfunction. * 2. Mildly dilated right ventricle with normal systolic function. * 3. Mild left atrial dilation. * 4. Mild mitral regurgitation. * 5. Normal estimated right ventricular systolic pressure; 25 mmHg. Procedure Details * ECHOEX, CPT #[id number] * ECHO COLOR FLOW, CPT #[id number] * ECHO DOPPLER, CPT #[id number] * A contrast injection of Definity was performed to improve assessment of LV function. * Contrast was injected into an intravenous site in the right arm. * One vial of Definity ultrasound contrast was diluted in normal saline to a total volume of 10 ml. A total of '4' ml of solution was administered during imaging. * Lot # [id number] of Definity utilized for procedure. * Expiration date 1APR18. * The attending nurse who injected the contrast agent was Cristo Niño RN. Left Ventricle * The left ventricle is normal in size. * There is mild concentric left ventricular hypertrophy. * Ejection Fraction = 50-55%. * Left ventricular systolic function is low normal. * Baseline resting wall motion abnormalities, including akinesis of the septal and inferior basal segments, as well as hypokinesis of the mid inferior and base to mid inferolateral wall segments. Following exercise, akinesis of the basal septum and basal inferior wall remain. Mid inferior wall appeared hypokinetic. Other visualized wall segments appear to augment appropriately. No new wall motion abnormalities noted. Right Ventricle * The right ventricle is mildly dilated. * The right ventricular systolic function is normal. * The right ventricular systolic function is normal as assessed by tricuspid annular plane systolic excursion (TAPSE) (normal >1.5 cm). Atria * The left atrium is mildly dilated. * Right atrial size is normal. Mitral Valve * There is mild mitral annular calcification. * The mitral valve is grossly normal. * There is no mitral valve stenosis. * There is mild mitral regurgitation. Tricuspid Valve * The tricuspid valve is not well visualized, but is grossly normal. * There is no tricuspid stenosis. * There is trace tricuspid regurgitation. Aortic Valve * The aortic valve is trileaflet. * The aortic valve is normal in structure and function. * No hemodynamically significant valvular aortic stenosis. * No aortic regurgitation is present. Pulmonic Valve * The pulmonary valve is inadequately visualized, but the Doppler data is adequate for interpretation. * Mild pulmonic valvular regurgitation. Great Vessels * The aortic root is normal size. * Ascending aorta of normal dimension * Aortic arch of normal dimension. * Normal IVC size and inspiratory collapse. Pericardium * There is no pericardial effusion. Stress Parameters * NSR at 62 bpm. Inferolateral T wave inversion. * No significant ST changes. Progression of baseline T wave abnormalities. * The stress portion of this study was personally supervised by the undersigned interpreting physician. * Rest heart rate was '62' BPM. * Rest blood pressure was '159/78' * Maximum heart rate achieved was 116 bpm. * Maximum heart rate was 82 % of maximum age-predicted heart rate. * Maximum blood pressure was '217/83' * Total exercise time was '6:00' * Maximum exercise MET level achieved was '7.0' METS * Maximum treadmill speed was '2.5' miles per hour. * Maximum treadmill elevation was '12'% grade. * Exercise was terminated due to 'hypertension' * Exercise-induced hypertension. MMode 2D Measurements and Calculations IVSd 1.2 cm IVSs 1.3 cm LVIDd 3.8 cm LVIDs 2.6 cm LVPWd 1.1 cm LVPWs 1.8 cm IVS/LVPW 1.1 FS 32.1 % EDV(Teich) 60.4 ml ESV(Teich) 23.5 ml EF(Teich) 61.1 % EDV(cubed) 53.2 ml ESV(cubed) 16.6 ml EF(cubed) 68.7 % % IVS thick 12.7 % % LVPW thick 70.7 % LV mass(C)d 136.0 grams LV mass(C)dI 65.4 grams/m\S\2 LV mass(C)s 140.9 grams LV mass(C)sI 67.8 grams/m\S\2 CO(Teich) 2.2 l/min CI(Teich) 1.1 l/min/m\S\2 SV(Teich) 36.9 ml SI(Teich) 17.7 ml/m\S\2 CO(cubed) 2.2 l/min CI(cubed) 1.1 l/min/m\S\2 SV(cubed) 36.5 ml SI(cubed) 17.6 ml/m\S\2 Ao root diam 3.7 cm Ao root area 10.7 cm\S\2 ACS 1.7 cm LA dimension 3.8 cm asc Aorta Diam 3.3 cm LA/Ao 1.0 LVAd ap4 37.5 cm\S\2 LVLd ap4 8.7 cm EDV(MOD-sp4) 131.0 ml EDV(sp4-el) 124.2 ml LVAs ap4 24.3 cm\S\2 LVLs ap4 7.3 cm ESV(MOD-sp4) 65.0 ml EF(MOD-sp4) 50.4 % LVAd ap2 28.0 cm\S\2 LVLd ap2 7.9 cm EDV(MOD-sp2) 83.0 ml LVAs ap2 16.8 cm\S\2 LVLs ap2 6.6 cm ESV(MOD-sp2) 38.0 ml EF(MOD-sp2) 54.2 % CO(MOD-sp4) 4.0 l/min CI(MOD-sp4) 1.9 l/min/m\S\2 SV(MOD-sp4) 66.0 ml SI(MOD-sp4) 31.7 ml/m\S\2 CO(MOD-sp2) 2.7 l/min CI(MOD-sp2) 1.3 l/min/m\S\2 SV(MOD-sp2) 45.0 ml SI(MOD-sp2) 21.6 ml/m\S\2 Doppler Measurements and Calculations MV E max georgiana 52.1 cm/sec MV A max georgiana 65.5 cm/sec MV E/A 0.79 MV P1/2t max georgiana 59.7 cm/sec MV P1/2t 115.6 msec MVA(P1/2t) 1.9 cm\S\2 MV dec slope 151.4 cm/sec\S\2 MV dec time 0.36 sec Ao V2 max 84.2 cm/sec Ao max PG 2.8 mmHg Ao max PG (full) 0.64 mmHg LV V1 max PG 2.2 mmHg LV V1 max 74.0 cm/sec TV E max georgiana 53.6 cm/sec PA V2 max 64.2 cm/sec PA max PG 1.7 mmHg TR max georgiana 234.6 cm/sec RVSP(TR) 25.0 mmHg RAP systole 3.0 mmHg
--- NOTE | 2016-08-20 13:34 | DISCHARGE SUMMARY ---
Please see dictated H\T\P for full details of his presentation. BRIEFLY: The patient is an 81-year-old with a history of CABG in February 2016, who came in complaining of tarry stools and left-sided chest pain. He had been having intermittent chest pain for the 3 weeks' prior to admission. He also complained of lightheadedness which prompted him to call the cardiology clinic. He was then sent to the Emergency Room. He had a sharp, stabbing pain that lasted for seconds, again was random and not associated with anything. He recently had stopped taking his aspirin. His hemoglobin was 13, hematocrit was 40 and white count was 6. Creatinine was 1.1, BUN of 19 and troponin was less than 0.015. The patient was seen in consultation by Dr. Agustin Gongora for cardiology who recommended a stress echocardiogram based upon the patient's atypical chest discomfort and complex cardiac history which included history of severe coronary artery disease status post a redo coronary artery bypass 5 months prior to admission, diabetes, hypertension and hyperlipidemia. A stress echocardiogram showed there were no inducible ischemic changes on stress echo imaging. Had 82% of his maximum predicted heart rate. EF was 50-55%. Akinesis of the basal septum and basal inferior wall. Hypokinesis of the inferior wall and mid inferior wall segments. Mild concentric left ventricular hypertrophy, type I diastolic dysfunction. There were no significant wall motion abnormalities noted. The stress potion of the echocardiogram. The aortic valve was trileaflet, no hemodynamically significant valvular aortic stenosis. Based on these findings the patient was discharged on 08/08/2016 with the diagnosis of atypical chest pain. DISCHARGE DIAGNOSES: 1. Atypical chest pain. 2. Coronary artery disease status post coronary artery bypass. 3. Diabetes. Time spent in review of the chart, discussion with the patient on date of discharge 31 minutes.
[2016-11-02] MEDS ORDERED: CYM/30 PO (09:20)
== END 2016-08-08 17:30 | disposition home or self-care (01) | DRG 313 ==
LOC: ENRESERVDT → ENRESERVTM → C.EDB 15:55 → C.2T 18:40
PROVIDERS: ADMIT Hospitalist; ATTEND Hospitalist
DX: R07.89 Other chest pain (principal); K92.1 Melena; I25.10 Atherosclerotic heart disease of native coronary artery without angina pectoris; I10 Essential (primary) hypertension; E11.9 Type 2 diabetes mellitus without complications; E78.5 Hyperlipidemia, unspecified; K21.9 Gastro-esophageal reflux disease without esophagitis; I73.9 Peripheral vascular disease, unspecified; N40.0 Benign prostatic hyperplasia without lower urinary tract symptoms; M19.90 Unspecified osteoarthritis, unspecified site; Z95.5 Presence of coronary angioplasty implant and graft; Z95.1 Presence of aortocoronary bypass graft; Z82.49 Family history of ischemic heart disease and other diseases of the circulatory system; Z87.891 Personal history of nicotine dependence; Z79.02 Long term (current) use of antithrombotics/antiplatelets; Z79.82 Long term (current) use of aspirin; Z79.84 Long term (current) use of oral hypoglycemic drugs

== ENCOUNTER → 2016-11-02 | Day surgery (SDC) | payer OTHER ==
[~2016-11-02] VITALS: Ht 175.3 cm; Wt 86.0 kg
[~2016-11-02] MED LIST changes: -ASPEC81 PO; +ASPI81TA21 PO; -CALC625T13 PO; +CYM/30 PO; +FENTANYL CITRATE INJ 50 MCG/1 ML 2 ML VIAL ONE; +FIBE1CHW PO; -LISI-729 PO; +MIDAZOLAM HCL 1 MG/ML 2ML VIAL ONE
[2016-11-02 09:00] VITALS: BP 142/71; PULSE 58; TEMP 36.6; O2SAT 96; Ht 175.3 cm; Wt 86.0 kg
--- NOTE | 2016-11-02 09:20 | History & Physical Bridge Note ---
H&P Re-Evaluation Bridge Note: I have examined the patient, reviewed the History & Physical and in the interval since the performance of the History & Physical I have noted the following changes of clinical significance: No changes noted
--- NOTE | 2016-11-02 09:21 | Procedure Note ---
Pre-Mod Sedation Assessment General Date of Moderate Sedation: Nov 02, 2016. Vital Signs: Vital Signs Past 12 Hours Date Time Temp Pulse Resp B/P (MAP) Pulse Ox O2 Delivery O2 Flow Rate FiO2 11/02/16 09:00 36.6 58 18 142/71 96 Room Air Review Cardiovascular: regular rate, rhythm, no edema Abdomen: normal bowel sounds, non tender Lungs: chest non-tender, lungs clear Pre-Sedation Airway Assessment Oral Cavity: WNL Able to Visualize Vocal Cords: No Short Thick Neck: No Hx of Sleep Apnea: No Smoking Status: Former Smoker Mallampati Classification: Class III ASA Classification: Class II Procedure Planning Contraindications-for Mod Sed: None Yes Notes The planned sedation has been discussed with the patient and consent obtained. I have identified the patient, determined the appropriateness of sedation and have assessed the patient immediately prior to the procedure. All medicine(s) and interventions are by my order.
--- NOTE | 2016-11-02 10:29 | Procedure Note ---
Post-Mod Sedation Assessment General Date of Moderate Sedation Nov 02, 2016. Vital Signs: Vital Signs Past 12 Hours Date Time Temp Pulse Resp B/P (MAP) Pulse Ox O2 Delivery O2 Flow Rate FiO2 11/02/16 09:00 36.6 58 18 142/71 96 Room Air Review - Discharge Criteria Vital Signs Stable: Yes Alert/Oriented/Conversant: Yes Returned to Baseline Mental St: Yes Nausea Absent/Minimal: Yes Pain/Discomfort/Absent/Minimal: Yes Normal/Baseline Respirations: Yes Active Bleeding?: No Pt Received D/C Instructions: N/A Prescriptions Given: None Specific Proced. D/C Criteria Distal Pulses Present (Cardiac: Yes Groin site assessed-Card Cath: N/A Voided Prior To Discharge: N/A Discharged Patients Adult Escort/Transportation: Yes
--- NOTE | 2016-11-02 10:48 | Cardiac Catheterization ---
Procedure Note Procedure Date Nov 02, 2016. Pre-Procedure Diagnosis Angina AUC Score 7 Post-Procedure Diagnosis Severe CAD Procedure(s) Performed Coronary Angiography, Bypass Graft Angiography, Femoral Artery Angiography Sap Project Manager Rolan [employer] Collections Analyst(s) [place] Estimated Blood Loss 15 Medication(s) Fentanyl, Versed, Lidocaine 1% Summary of Findings Indication: Typical angina/Recent Redo-CABG Access: 6Fr Left femoral artery Catheters: JL4, JR4, ABY Findings: LM - Diffuse 30% stenosis LAD - Occluded mid vessel. CLARKE-LAD patent. Distal LAD with luminal irregularities. Circumflex - Ostial 70-80% stenosis, 50-60% proximal large OM2 RCA - Completely occluded at the ostium CLARKE-LAD widely patent SVG-PDA widely patent (actual anastomosis into PAV) retrofills PDA and to mid RCA. 40% ostial stenosis of PDA. Distal PDA/PLB with luminal irregularities. SVG-OM2 widely patent and retrofills circumflex system. Arterial Closure: Mynx Summary: 1. Severe [place] coronary artery disease - Occluded ostial RCA - Occluded mid LAD - 70-80% ostial Circumflex, 50-60% proximal OM2 2. Patent CLARKE-LAD, SVG-PDA, SVG-OM Recommendations: Continue medical management of CAD including current antianginals Continued ASCVD risk factor modification including ASA/plavix/statin Encourage regular exercise following cardiac rehab Follow-up with Cardiology clinic in 1-2 months. Hemodynamics Rest Ao: 147/57/91 Final Ao: 152/53/90 LV: -- Recommendations Medical therapy and/or Counseling Specimens None Radiation Exposure (mGy) 1960 Contrast (mls) 150 Visi Fluids (cc crystalloids) 85 mL Drains none Anesthesia moderate (9:46 - 10:19) Procedural Complication(s) None Disposition Plant Technician Holding/Recovery [facility] Data Cardiac Status Clinical evaluation leading to the procedure CAD Presntation: Stable angina Anginal Classification: CCS III Heart Failure: No, NYHA Class: CCS I Cardiogenic Shock w/in 24Hrs: No Cardiac Arrest w/in 24Hrs: No Imaging studies past 6 months: Yes Stress studies past 6 months: Yes Standard Exercise Stress Test: No Stress Echocardiogram: Yes - Indeterminant Stress Testing w/SPECT MPI: No Cardiac CTA: No Coronary Anatomy Dominant: Right Left Main (% Stenosis): Ostial (30) LAD (% Stenosis): Mid (100) Circumflex (% Stenosis): Ostial (70) OM2 (% Stenosis): Proximal (50) RCA (% Stenosis): Ostial (100) Grafts - LAD (%): Normal Grafts - Circumflex (%): Normal Grafts - RCA (%): Normal Diagnostic Physician's Name: Agustin Gongora MD Status: Elective Closure Device Percutaneous Entry Location: Femoral Closure Device: Mynx Recommendations: Medical therapy and/or Counseling Intraprocedure Events Significant Dissection: No Perforation: No
--- NOTE | 2016-11-02 10:50 | Discharge Instructions ---
Discharge Instructions Procedure Procedure Date: Nov 02, 2016. Reason for Visit: Dyspnea On Exertion. Discharge Discharge Date: Nov 02, 2016. Discharge Diagnosis: Stable coronary artery disease Last Recorded Wt (Kilograms): 86 Anesthesia Post Anesthesia Instructions: If you have had General Anesthesia or IV Sedation: * Do not drive today. * Resume driving when Facilities Manager permits. * Do not make important decisions or sign legal documents today. * Call surgeon for: 1. Temperature elevations greater than 101 degrees F. 2. Uncontrollable pain. 3. Excessive bleeding. 4. Persistent nausea and vomiting. 5. Medication intolerance (nausea, vomiting or rash). * For nausea and vomiting use only clear liquids such as: tea, soda, bouillon until nausea subsides, then gradually increase diet as tolerated. * If you have any concerns or questions, call your surgeon's office. If physician is unavailable and it is an emergency, call 911 or go to the nearest emergency room. Instructions Activity Recommendations: limitations as noted below Recommended Home Diet: resume previous diet Allergies: Coded Allergies: Tramadol (Unverified Allergy, Unknown, Stroke-like symptoms, 08/07/16) Hydrocodone (Unverified Adverse Reaction, Unknown, Vicodin = stroke-like sxs, 08/07/16) Follow Up Additional Instructions: ACTIVITY RECOMMENDATIONS: It is common to feel weak and fatigue for a few days. * Do not drive or operate any motorized equipment for the next 2 days. * Limit stair usage (2 or 3 trips a day only) for the next 2 days. * Do not lift anything heavier than 10 pounds for the next three days. * Do not engage in vigorous exercise or any sports for the next five days. * You may shower the day after your procedure, but do not immerse the area for three days. Cleanse the site gently with soap and water. SPECIAL CARE INSTRUCTIONS: * You may replace the pressure dressing or band-aid the morning after the procedure. * After your procedure, it is normal to have a small bruise or small lump at the site. Examine your site daily for any change in the bruise or lump, redness, swelling, drainage or numbness. Notify your doctor if any change. BLEEDING: * If there is a small amount of bleeding at the site, lie down and apply firm pressure with a clean cloth for ten minutes. When the bleeding stops, lie quietly keeping the procedure limb straight for six hours. Notify your doctor as soon as possible. * If the bleeding does not stop after ten minutes or if there is a large amount of bleeding or spurting, call 911 immediately. Continue to lie down and hold firm pressure until help arrives. SKIN IRRITATION: * You may experience some redness and/or swelling in the area where radiation was administered. If any skin irritation occurs, please contact your family physician. FOLLOW UP VISIT: Keep any scheduled doctor appointments. Follow-up with: Cardiology clinic in 1-2 months Herlinda Medellin Recommendations: Call your doctor if: * Temperature above 101 degrees * Pain not relieved by pain medicine ordered * There is increased drainage or redness from any incision * You have any unanswered questions or concerns. Your Doctors Instructions noted above were prepared by provider Lopez Gongora. Patient Signature Section: Patient Instructions Signature Page Sean Figueroa Patient (or Guardian) Signature/Date: I have read and understand the instructions given to me by my caregivers. Caregiver/RN/Doctor Signature/Date: The above-named patient and/or guardian has received patient instructions on this date. + Original Patient Signature Page (only) stays with chart. Please make copy for patient.
[2016-11-02 14:30] VITALS: BP 124/62; PULSE 60; O2SAT 94
== END | disposition home or self-care (01) ==
LOC: C.CATH 08:31
PROVIDERS: ATTEND Internal Medicine Interventional Cardiology
DX: I25.10 Atherosclerotic heart disease of native coronary artery without angina pectoris (principal); I10 Essential (primary) hypertension; E78.00 Pure hypercholesterolemia, unspecified; I73.9 Peripheral vascular disease, unspecified; E11.9 Type 2 diabetes mellitus without complications; R06.09 Other forms of dyspnea; E78.5 Hyperlipidemia, unspecified; K21.9 Gastro-esophageal reflux disease without esophagitis; N40.1 Benign prostatic hyperplasia with lower urinary tract symptoms; N13.8 Other obstructive and reflux uropathy; Z87.891 Personal history of nicotine dependence; Z95.1 Presence of aortocoronary bypass graft; Z79.82 Long term (current) use of aspirin; K57.00 Diverticulitis of small intestine with perforation and abscess without bleeding; K59.00 Constipation, unspecified

== ENCOUNTER → 2017-08-19 | Day surgery (SDC) | payer OTHER ==
[2017-08-02 11:37] VITALS: Ht 181.6 cm; Wt 86.4 kg
[~2017-08-19] VITALS: Ht 181.6 cm; Wt 86.4 kg
[~2017-08-19] MED LIST changes: +500ML BSS 0.3ML EPI 1:1000PF IRRIG ONE; -ACET1TAB84 PO; +ACETAMINOPHEN 325 MG TAB PO PRN; +AMVISC PLUS 0.8ML SYRINGE INT OCU ONE; +ATROPINE SULFATE 0.1 MG/ML 5ML SYR IV PRN; +BRIMONIDINE TART 0.2% OP SOLN PER DROP CHARGE ONE; +BSS FLUSH ONE; +CYAN10005 PO; -CYM/30 PO; +ENDOCOAT 0.85ML SYRINGE INT OCU ONE; +EpHEDrine SULFATE INJ 50 MG/ML AMP IV PRN; +EpINEphrine INJ 1MG/ML AMP 1 MG/ML AMP ONE; -FENTANYL CITRATE INJ 50 MCG/1 ML 2 ML VIAL ONE; -FIBE1CHW PO; -GABA-113 PO; +GLC/500 PO; -GLC500 PO; +LACTATED RINGER'S 1000ML 500 ML IV SCH; -LDDP5 TD; +LIDOCAINE 4% OP SOLN DROP CHARGE ONE; +LIDOCAINE 4% OP SOLN DROP CHARGE OPL SCH; +LIDOCAINE HCL 1% MPF 2 ML VIAL ONE; +MOXIFLOXACIN OPH SOLN PER DROP CHARGE ONE; +ONDANSETRON INJ 2 MG/ML 2 ML VIAL IV PRN; +POTASSIUM PO; +POVIDONE-IODINE OP SOLN 30 ML BTL ONE; +PREG1CAP28 PO; +PROPARACAINE 0.5% OP SOLN PER DROP CHARGE OPL SCH; +TOBRAMYCIN/DEXAMETHASONE OPH OINT PER APPLN CHARGE ONE; -VLTG EXT
[2017-08-19] MEDS: PHENYLEPHRINE HCL 2.5% OP SOLN PER DROP CHARGE OPL SCH ×2 (06:59→07:04)
[2017-08-19] MEDS: TROPICAMIDE 1% OP SOLN PER DROP CHARGE OPL SCH ×2 (07:00→07:05)
[2017-08-19] MEDS: CYCLOPENTOLATE HCL 1% OP SOLN PER DROP CHARGE OPL SCH ×2 (07:01→07:06)
[2017-08-19] MEDS: KETOROLAC 0.5% OP SOLN PER DROP CHARGE OPL SCH ×2 (07:02→07:07)
[2017-08-19] MEDS: MOXIFLOXACIN OPH SOLN PER DROP CHARGE OPL SCH ×2 (07:03→07:09)
--- NOTE | 2017-08-19 07:52 | [facility] Operative Report ---
Operative Report Operative Date Aug 19, 2017. Pre-Operative Diagnosis Cataract Left Eye Post-Operative Diagnosis same Procedure(s) Performed Left Cataract Phacoemulsification With Intraocular Lens Implant Surgeon Dr. Ferrer Radiology Scheduler Surgeon(s) none Estimated Blood Loss 0ml Findings cataract left eye Fluids see anesthesia record Specimens none Drains None Anesthesia Type MAC Complication(s) none Disposition no Recovery Room / PACU Indications decreased vision left eye Description of Procedure After informed consent was obtained in the holding area the patient was wheeled back to the operating room where cardiac monitoring leads and oxygen by nasal cannula was administered by Anesthesia. Gentle IV sedation was given, and the patient's left eye was prepped and draped in usual sterile fashion. A wire lid speculum was placed into the left eye and the operating microscope was swung into position. Using 0.12 forceps and a Supersharp blade a paracentesis port was made 2 o'clock hours away from the 3 o'clock position of the patient's left eye. 1% non-preserved Lidocaine was then injected into the anterior chamber for anesthesia. A 2.0 mm keratotome blade was then used to make a shelved clear corneal incision at the 3 o'clock position of the left eye. Amvisc was injected into the anterior chamber and a cystotome and Utrata forceps were used to perform a curvilinear capsulorrhexis. BSS on a hydrodissection cannula was used to hydrodissect the lens nucleus away from the capsular bag. The phacoemulsification handpiece was then used in a stop and chop fashion to remove the lens nucleus. The irrigation and aspiration handpiece was then used to remove the residual cortical material. Amvisc was injected into the capsular bag and anterior chamber and a Bausch & Lomb MX60 17.5 Diopter intraocular lens was injected into the capsular bag. Irrigation and aspiration handpiece was used to remove the residual viscoelastic material. The wounds were hydrated and noted to be watertight. The wire lid speculum was removed from the eye. Vigamox, Brimonidine, and TobraDex ointment were placed on the eye and it was shielded. It should be noted that EndoCoat was used extensively during the case to protect the cornea endothelium. DISPOSITION: The patient tolerated the procedure well and was wheeled to the post anesthesia care unit in stable condition. I attest to the content of the Intraoperative Record and any orders documented therein. Any exceptions are noted below. I attest to the content of the Intraoperative Record and any orders documented therein. Any exceptions are noted below.
--- NOTE | 2017-08-19 07:54 | Discharge Instructions-SurgCtr ---
Discharge Instructions Date of Service Aug 19, 2017. Visit Reason for Visit: Cataract Left Eye Discharge Discharge Diagnosis / Problem: cataract left eye Discharge Goals Goal(s): Improve function Medications Stopped Medications Name(s): metformin stopped since Activity Recommendations Activity Limitations: per Instructions/Follow-up section Lifting Limitations: no more than 5 pounds Anesthesia . Post Anesthesia Instructions: If you have had General Anesthesia or IV Sedation: * Do not drive today. * Resume driving when surgeon permits. * Do not make important decisions or sign legal documents today. * Call surgeon for: 1. Temperature elevations greater than 101 degrees F. 2. Uncontrollable pain. 3. Excessive bleeding. 4. Persistent nausea and vomiting. 5. Medication intolerance (nausea, vomiting or rash). * For nausea and vomiting use only clear liquids such as: tea, soda, bouillon until nausea subsides, then gradually increase diet as tolerated. * If you have any concerns or questions, call your surgeon's office. If physician is unavailable and it is an emergency, call 911 or go to the nearest emergency room. . Instructions / Follow-Up Instructions / Follow-Up ACTIVITY RECOMMENDATIONS: * Light activities * You may walk outside, read, watch television. * Mild irritation and blurred vision are common for the first few days, redness around the white part of the eye is common. MEDICATIONS: Resume previous medications unless instructed otherwise by your surgeon. Eye drops (today and tomorrow): Cipro - one drop in operative eye every 2 hours while awake Prednisolone 1% - one drop in operative eye every 2 hours while awake Bromfenac - one drop in operative eye once daily SPECIAL CARE INSTRUCTIONS: * If any problems or concerns, please call Dr. Ferrer's office at . * Keep plastic shield taped over eye to sleep at night. * Keep plastic shield taped over eye except to administer eye drops. * Keep plastic shield on until office visit the following day. FOLLOW UP VISIT: Follow-up with Dr. Ferrer in the [place] office as scheduled. If not already scheduled, please call the office at . Diet Recommendations Home Diet: resume previous diet Procedures Procedures Performed: Left Cataract Phacoemulsification With Intraocular Lens Implant Pending Studies Studies pending at discharge: no Medical Emergencies . Who to Call and When: Medical Emergencies: If at any time you feel your situation is an emergency, please call 911 immediately. . Non-Emergent Contact Non-Emergency issues call your: [facility] . . "Provider Documentation" section prepared by Fercho Ferrer. .
--- NOTE | 2017-08-19 08:24 | Anesthesia Progress Nt - [facility] ---
Anesthesia Post Op Note Date & Time Aug 19, 2017 at 08:23 Vital Signs Pain Intensity: 0 Vital Signs Past 12 Hours Date Time Temp Pulse Resp B/P (MAP) Pulse Ox O2 Delivery O2 Flow Rate FiO2 08/19/17 07:54 36.4 65 16 130/78 (95) 95 Room Air 08/19/17 06:50 36.5 65 16 135/89 (104) 95 Room Air Notes Mental Status: alert / awake / arousable, participated in evaluation Pt Amnestic to Procedure: Yes Nausea / Vomiting: adequately controlled Pain: adequately controlled Airway Patency, RR, SpO2: stable & adequate BP & HR: stable & adequate Hydration State: stable & adequate Anesthetic Complications: no major complications apparent
[2017-08-19 08:27] VITALS: BP 133/72; PULSE 71; O2SAT 94
== END | disposition home or self-care (01) ==
LOC: X.SURG 06:23
PROVIDERS: ATTEND Ophthalmology
DX: E11.36 Type 2 diabetes mellitus with diabetic cataract (principal); H26.9 Unspecified cataract; I25.10 Atherosclerotic heart disease of native coronary artery without angina pectoris; Z95.1 Presence of aortocoronary bypass graft; Z86.73 Personal history of transient ischemic attack (TIA), and cerebral infarction without residual deficits; I25.2 Old myocardial infarction; I10 Essential (primary) hypertension; I73.9 Peripheral vascular disease, unspecified; K21.9 Gastro-esophageal reflux disease without esophagitis; M06.9 Rheumatoid arthritis, unspecified; N40.0 Benign prostatic hyperplasia without lower urinary tract symptoms; Z98.890 Other specified postprocedural states; Z90.89 Acquired absence of other organs; Z87.891 Personal history of nicotine dependence; Z90.49 Acquired absence of other specified parts of digestive tract; E78.00 Pure hypercholesterolemia, unspecified; Z79.899 Other long term (current) drug therapy; Z79.02 Long term (current) use of antithrombotics/antiplatelets; Z79.82 Long term (current) use of aspirin

== ENCOUNTER → 2017-09-09 | Day surgery (SDC) | payer OTHER ==
[2017-09-03 11:21] VITALS: Ht 181.6 cm; Wt 86.4 kg
[~2017-09-09] VITALS: Ht 181.6 cm; Wt 86.4 kg
[~2017-09-09] MED LIST changes: +ASPI-319 PO; -ASPI81TA21 PO; +BRIMONIDINE TARTRATE 0.2% 5ML ONE; -LIDOCAINE 4% OP SOLN DROP CHARGE OPL SCH; +LIDOCAINE 4% OP SOLN DROP CHARGE OPR SCH; +MIX: 3ML BSS AND 1ML EPI(PF) TOP ONE; -ONDANSETRON INJ 2 MG/ML 2 ML VIAL IV PRN; -PROPARACAINE 0.5% OP SOLN PER DROP CHARGE OPL SCH; +PROPARACAINE 0.5% OP SOLN PER DROP CHARGE OPR SCH
[2017-09-09] MEDS: PHENYLEPHRINE HCL 2.5% OP SOLN PER DROP CHARGE OPR SCH ×2 (06:38→06:43)
[2017-09-09] MEDS: TROPICAMIDE 1% OP SOLN PER DROP CHARGE OPR SCH ×2 (06:39→06:44)
[2017-09-09] MEDS: CYCLOPENTOLATE HCL 1% OP SOLN PER DROP CHARGE OPR SCH ×2 (06:40→06:45)
[2017-09-09] MEDS: KETOROLAC 0.5% OP SOLN PER DROP CHARGE OPR SCH ×2 (06:41→06:46)
[2017-09-09] MEDS: MOXIFLOXACIN OPH SOLN PER DROP CHARGE OPR SCH ×2 (06:42→06:55)
--- NOTE | 2017-09-09 07:28 | [facility] Operative Report ---
Operative Report Operative Date Sep 09, 2017. Pre-Operative Diagnosis Right Eye Cataract Post-Operative Diagnosis Same Procedure(s) Performed Right Eye Cataract Phacoemulsification With Intraocular Lens Implant Surgeon Dr. Ferrer Cq Developer Surgeon(s) None Estimated Blood Loss none Findings cataract right eye Fluids see anesthesia record Specimens None Drains None Anesthesia Type MAC Complication(s) none Disposition no Recovery Room / PACU Indications decreased vision right eye Description of Procedure After informed consent was obtained in the holding area the patient was wheeled back to the operating room where cardiac monitoring leads and oxygen by nasal cannula was administered by Anesthesia. Gentle IV sedation was given, and the patient's right eye was prepped and draped in usual sterile fashion. A wire lid speculum was placed into the right eye and the operating microscope was swung into position. Using 0.12 forceps and a Supersharp blade a paracentesis port was made 2 o'clock hours away from the 9 o'clock position of the patient's right eye. 1% non-preserved Lidocaine was then injected into the anterior chamber for anesthesia. Flomax mix was injected into the eye to aid with pupillary dilation. A 2.0 mm keratotome blade was then used to make a shelved clear corneal incision at the 9 o'clock position of the right eye. Amvisc was injected into the anterior chamber and a cystotome and Utrata forceps were used to perform a curvilinear capsulorrhexis. BSS on a hydrodissection cannula was used to hydrodissect the lens nucleus away from the capsular bag. The phacoemulsification handpiece was then used in a stop and chop fashion to remove the lens nucleus. The irrigation and aspiration handpiece was then used to remove the residual cortical material. Amvisc was injected into the capsular bag and anterior chamber and a Bausch & Lomb MX60 17.0 Diopter intraocular lens was injected into the capsular bag. Irrigation and aspiration handpiece was used to remove the residual viscoelastic material. The wounds were hydrated and noted to be watertight. The wire lid speculum was removed from the eye. Vigamox, Brimonidine, and TobraDex ointment were placed on the eye and it was shielded. It should be noted that EndoCoat was used extensively during the case to protect the cornea endothelium. DISPOSITION: The patient tolerated the procedure well and was wheeled to the post anesthesia care unit in stable condition. I attest to the content of the Intraoperative Record and any orders documented therein. Any exceptions are noted below. I attest to the content of the Intraoperative Record and any orders documented therein. Any exceptions are noted below.
--- NOTE | 2017-09-09 07:29 | Discharge Instructions-SurgCtr ---
Discharge Instructions Date of Service Sep 09, 2017. Visit Reason for Visit: Cataract Right Eye Discharge Discharge Diagnosis / Problem: cataract right eye Discharge Goals Goal(s): Improve function Medications Stopped Medications Name(s): Metformin stopped 09-05-17 Activity Recommendations Activity Limitations: per Instructions/Follow-up section Lifting Limitations: no more than 5 pounds Anesthesia . Post Anesthesia Instructions: If you have had General Anesthesia or IV Sedation: * Do not drive today. * Resume driving when surgeon permits. * Do not make important decisions or sign legal documents today. * Call surgeon for: 1. Temperature elevations greater than 101 degrees F. 2. Uncontrollable pain. 3. Excessive bleeding. 4. Persistent nausea and vomiting. 5. Medication intolerance (nausea, vomiting or rash). * For nausea and vomiting use only clear liquids such as: tea, soda, bouillon until nausea subsides, then gradually increase diet as tolerated. * If you have any concerns or questions, call your surgeon's office. If physician is unavailable and it is an emergency, call 911 or go to the nearest emergency room. . Instructions / Follow-Up Instructions / Follow-Up ACTIVITY RECOMMENDATIONS: * Light activities * You may walk outside, read, watch television. * Mild irritation and blurred vision are common for the first few days, redness around the white part of the eye is common. MEDICATIONS: Resume previous medications unless instructed otherwise by your surgeon. Eye drops (today and tomorrow): Cipro - one drop in operative eye every 2 hours while awake Prednisolone 1% - one drop in operative eye every 2 hours while awake Bromfenac - one drop in operative eye once daily SPECIAL CARE INSTRUCTIONS: * If any problems or concerns, please call Dr. Ferrer's office at . * Keep plastic shield taped over eye to sleep at night. * Keep plastic shield taped over eye except to administer eye drops. * Keep plastic shield on until office visit the following day. FOLLOW UP VISIT: Follow-up with Dr. Ferrer in the [place] office as scheduled. If not already scheduled, please call the office at . Diet Recommendations Home Diet: resume previous diet Procedures Procedures Performed: Right Eye Cataract Phacoemulsification With Intraocular Lens Implant Pending Studies Studies pending at discharge: no Medical Emergencies . Who to Call and When: Medical Emergencies: If at any time you feel your situation is an emergency, please call 911 immediately. . Non-Emergent Contact Non-Emergency issues call your: Internal Medicine Specialist . . "Provider Documentation" section prepared by Fercho Ferrer. .
[2017-09-09 07:33] VITALS: TEMP 36.4
[2017-09-09 07:57] VITALS: BP 129/70; PULSE 60; O2SAT 94
--- NOTE | 2017-09-09 08:12 | Anesthesia Progress Nt - [facility] ---
Anesthesia Post Op Note Date & Time Sep 09, 2017 at 08:12 Vital Signs Pain Intensity: 0 Vital Signs Past 12 Hours Date Time Temp Pulse Resp B/P (MAP) Pulse Ox O2 Delivery O2 Flow Rate FiO2 09/09/17 07:57 60 14 129/70 (89) 94 Room Air 09/09/17 07:33 36.4 61 16 137/75 (95) 94 Room Air 09/09/17 06:34 36.3 72 16 138/76 (96) 94 Room Air Notes Mental Status: alert / awake / arousable, participated in evaluation Pt Amnestic to Procedure: Yes Nausea / Vomiting: adequately controlled Pain: adequately controlled Airway Patency, RR, SpO2: stable & adequate BP & HR: stable & adequate Hydration State: stable & adequate Anesthetic Complications: no major complications apparent
== END | disposition home or self-care (01) ==
LOC: X.SURG 06:21
PROVIDERS: ATTEND Ophthalmology
DX: H25.11 Age-related nuclear cataract, right eye (principal); I25.10 Atherosclerotic heart disease of native coronary artery without angina pectoris; N40.0 Benign prostatic hyperplasia without lower urinary tract symptoms; E11.9 Type 2 diabetes mellitus without complications; H52.209 Unspecified astigmatism, unspecified eye; E78.00 Pure hypercholesterolemia, unspecified; I10 Essential (primary) hypertension; I25.2 Old myocardial infarction; Z86.73 Personal history of transient ischemic attack (TIA), and cerebral infarction without residual deficits; Z90.49 Acquired absence of other specified parts of digestive tract; Z95.1 Presence of aortocoronary bypass graft; Z87.891 Personal history of nicotine dependence; Z79.82 Long term (current) use of aspirin; Z88.5 Allergy status to narcotic agent

== ENCOUNTER 2019-01-29 12:06 | Observation (INO) ==
[2019-01-29] MEDS ORDERED: fentaNYL citrate 100 MCG/2 ML VIAL IV STA (12:44)
--- NOTE | 2019-01-29 12:46 | XRay Report ---
XR chest 1V portable CLINICAL HISTORY: Chest Pain dyspnea COMPARISON STUDY: 03/26/2018 FINDINGS: Myocardial megaly. Prior median sternotomy. Calcified pleural plaques as well as diaphragmatic scarring bilaterally. All findings are considered chronic. No acute infiltrate. IMPRESSION: Chronic and postoperative change. No acute process. The above report was generated using voice recognition software. It may contain grammatical, syntax or spelling errors. Electronically signed by: Arslan Gomez M.D. 01/29/2019 12:45 PM
[2019-01-29 13:09] LABS: Basophils # (auto) 0.02 K/uL (0-0.2); Basophils % (auto) 0.3 %; Eosinophils # (auto) 0.24 K/uL (0-0.5); Eosinophils % (auto) 3.8 %; Hematocrit (blood only) 41.8 % (42-52); Immature Granulocytes # (auto) 0.01 K/uL (0.00-0.02); Immature Granulocytes % (auto) 0.2 %; Lymphocytes # (auto) 1.81 K/uL (1.2-3.4); Lymphocytes % (auto) 28.7 %; Mean Corpuscular Hgb Conc 33.5 g/dL (32-36); Mean Corpuscular Volume 93.9 fL (80-100); Mean Platelet Volume 11.3 fL (7.4-10.4); Monocytes # (auto) 0.63 K/uL (0.11-0.59); Neutrophils # (auto) 3.59 K/uL (1.4-6.5); Platelet Count 140 K/uL (130-400); RDW Coefficient of Variation 13.5 % (11.5-14.5); RDW Standard Deviation 46.3 fL (36.4-46.3); Red Blood Count 4.45 M/uL (4.7-6.1)
[2019-01-29 13:26] LABS: Alanine Aminotransferase 22 U/L (12-78); Albumin Level 3.7 gm/dl (3.4-5.0); Aspartate Aminotransferase 17 U/L (15-37); BUN Creatinine Ratio 18.1 (10-20); Blood Urea Nitrogen 17 mg/dl (7-18); Calcium 9.7 mg/dl (8.5-10.1); Carbon Dioxide 28 mmol/L (21-32); Chloride 108 mmol/L (98-107); Creatinine Clr Calc Pharmacy 65.6 ml/min; Est GFR (African American) 83.9; Est GFR (Non-African American) 72.4; Glucose 80 mg/dl (70-99); Potassium 4.9 mmol/L (3.5-5.1); Sodium 142 mmol/L (136-145)
[2019-01-29 13:31] LABS: Albumin Globulin Ratio 1.1 (0.9-2); Alkaline Phosphatase 40 U/L (45-117); Bilirubin,Total 0.5 mg/dl (0.2-1); Globulin 3.5 gm/dl (2.5-4.0); Total Protein 7.2 gm/dl (6.4-8.2); Troponin I < 0.015 ng/ml (0-0.045)
--- NOTE | 2019-01-29 14:34 | History & Physical Report ---
Date of Service January 29, 2019 Assessment & Plan (1) Chest pain: Concern for ACS given pt hx and similar sx with resolution with nitro ?? stent displacement?? Trop neg x1, serials pending EKG neg for LA Monitor on tele Pt with hx of multiple CABG and stents x15 Follows with Dr. Gongora if needed Last stress was 2016, dobutamine--t/c stress if repeat sx and trop neg (2) Hypertension: continue home meds (3) Hyperlipidemia: continue home meds (4) DM type 2 (diabetes mellitus, type 2): continue home meds (5) GERD (gastroesophageal reflux disease): continue home meds (6) TIA (transient ischemic attack): continue home meds (7) DVT prophylaxis: SCDs History of Present Illness Primary Care Provider: Abram Garcia 83 y/o M c/o chest pain. Pt states that he was a bit more fatigued yesterday than usual and then last night he had sudden onset of pain between his shoulder blades and mild L sided chest pain. Pt has some sort of home EKG device and it told him he was having a "cardiac incident" and to seek care. He had recurrence of this pain again this AM, and his EKG device against registered with a cardiac incident, so pt was seen by his PCP. He was sent via ambulance to [facility] for further assessment. Pt states that the pain he was having is similar to when he has had LA in the past, but not as intense. He did have SOB with stairs only. He feels fine otherwise. Pt denies fever, abd pain, n/v/c/d, LE pain or swelling. Pt was given nitro en route to the ED and his pain resolved. He has not had recurrence. Pt states he follows with Dr. Gongora. His last stress test was February 2017 after his second bypass surgery. Allergies Allergy/AdvReac Type Severity Reaction Status Date / Time hydrocodone AdvReac Unknown Vicodin = Verified 01/29/19 13:42 stroke-like sxs tramadol AdvReac Unknown Stroke-like Verified 01/29/19 13:42 symptoms Home Medications Home Medications Medication Instructions Recorded Confirmed Type aspirin 81 mg PO HS 01/29/19 01/29/19 History clopidogrel 75 mg PO QAM 01/29/19 01/29/19 History coenzyme Q10 [CoQ-10] 100 mg PO BID 01/29/19 01/29/19 History cyanocobalamin (vitamin B-12) 1,000 mcg PO QAM 01/29/19 01/29/19 History docusate sodium [Colace] 100 mg PO BID 01/29/19 01/29/19 History finasteride [Proscar] 5 mg PO HS 01/29/19 01/29/19 History meloxicam 15 mg PO QAM 01/29/19 01/29/19 History metformin 500 mg PO BID 01/29/19 01/29/19 History metoprolol tartrate 25 mg PO BID 01/29/19 01/29/19 History omega-3 fatty acids-fish oil [Fish 1 cap PO QAM 01/29/19 01/29/19 History Oil] pantoprazole [Protonix] 40 mg PO QAM 01/29/19 01/29/19 History potassium gluconate 550 mg PO QAM 01/29/19 01/29/19 History pregabalin [Lyrica] 75 mg PO BID 01/29/19 01/29/19 History rosuvastatin [Crestor] 40 mg PO QAM 01/29/19 01/29/19 History terazosin 5 mg PO HS 01/29/19 01/29/19 History Past Med/Surg History Medical History CVA (cerebral vascular accident) Chest pain Heart attack Surgical History Hx of CABG Social History Preferred Language: [place] Feels Safe at Home: Yes Smoking Status: Former smoker Number of Years Since Quit: 40 ; Hx Alcohol Use: Yes Alcohol type: beer Alcohol type Comment: occasional Hx Substance Use: No Review of Systems Review of Systems: Pertinent positives and negatives reviewed in HPI--all others negative Physical Exam Constitutional: WD/WN, vitals as above Eyes: normal visual mata by confrontation and + anicteric sclerae Neck: normal visual inspection and trachea midline Respiratory: normal respiratory effort, lungs clear to auscultation Cardiovascular: Rate/Rhythm: regular rate and regular rhythm Gastrointestinal (Abdomen): Inspection/Auscultation: abdomen not distended Percussion/Palpation: abdomen soft; abdomen nontender Musculoskeletal: Head/Neck/Chest: normocephalic and head atraumatic negative for edema, peripheral pulses intact Skin: no rashes, warm and dry Neurologic: awake; not confused Speech / Cognition: normal speech Psychiatric: A+Ox3, euthymic affect Results & Data Vital Signs (Past 12 Hours) Vital Signs Temp Pulse Resp BP Pulse Ox 01/29/19 14:00 60 27 H 181/71 H 97 01/29/19 13:57 58 L 24 179/96 H 97 01/29/19 13:30 57 L 17 149/94 H 01/29/19 13:02 58 L 18 145/69 H 95 01/29/19 12:30 61 22 128/71 94 01/29/19 12:27 96 01/29/19 12:17 36.7 C 71 24 147/73 H 96 01/29/19 12:13 63 14 147/73 H 95 Diagnostic Findings CXR: neg for acute ECG Additional Comments: PVCs Code Status & VTE Plan Code Status Full code, although pt states no prolonged mechanical life support, feeding tubes, etc. is present and agrees. VTE Prophylaxis Plan VTE Prophylaxis will be ordered: Yes PG Care Time/CCT Total # of Minutes Spent Total Time Spent with Patient: Total time spent is greater than 50% in coordination of care (as documented) at patient's floor/unit and/or counseling patient:
[2019-01-29] MEDS ORDERED: MAGNESIUM HYDROXIDE SUSP 30 ML UDC PO PRN (16:21)
[2019-01-29] MEDS ORDERED: NITROGLYCERIN SL 0.4 MG/TAB TAB SL PRN (16:21)
[2019-01-29] MEDS ORDERED: ONDANSETRON INJ 2 MG/ML 2 ML VIAL IV PRN (16:21)
--- NOTE | 2019-01-29 17:14 | Emergency Department Note ---
Entered by Gabe Cam acting as a scribe for History of Present Illness General Chief complaint: Cardiac Assessment Source: patient History of Present Illness Provider complaint: chest pain, SOB Onset (ago): day(s) 1 Location: chest Radiation: other (shoulder pain) Pain Consistency: + intermittent Maximum Pain Intensity: 4 Quality: + sharp and + other (tightness) Associated symptoms: + denies other symptoms The patient is an 83 y/o male with a past medical history of HTN, CVA, and CABG x 5, who presents to the emergency department for evaluation of intermittent SOB, and shoulder pain that began yesterday. The patient states he has a history of heart attacks and normally gets pain between the shoulders chest tightness, and shortness of breath which is why he came to the ED. He reports that he say his PCP earlier and they sent him here, he reports taking aspirin and nitroglycerin prior to arrival but they only improved him a little. The patient denies jaw pain, arm pain, and any other symptoms. Patient has had a total of 15 stents. No arm or jaw pain. Home Medications Home Medications Medication Instructions Recorded Confirmed Type aspirin 81 mg PO 01/29/19 01/29/19 History clopidogrel 75 mg PO QAM 01/29/19 01/29/19 History coenzyme Q10 [CoQ-10] 100 mg PO BID 01/29/19 01/29/19 History cyanocobalamin (vitamin B-12) 1,000 mcg PO QAM 01/29/19 01/29/19 History docusate sodium [Colace] 100 mg PO BID 01/29/19 01/29/19 History finasteride [Proscar] 5 mg PO 01/29/19 01/29/19 History meloxicam 15 mg PO QAM 01/29/19 01/29/19 History metformin 500 mg PO BID 01/29/19 01/29/19 History metoprolol tartrate 25 mg PO BID 01/29/19 01/29/19 History omega-3 fatty acids-fish oil [Fish 1 cap PO QAM 01/29/19 01/29/19 History Oil] pantoprazole [Protonix] 40 mg PO QAM 01/29/19 01/29/19 History potassium gluconate 550 mg PO QAM 01/29/19 01/29/19 History pregabalin [Lyrica] 75 mg PO BID 01/29/19 01/29/19 History rosuvastatin [Crestor] 40 mg PO QAM 01/29/19 01/29/19 History terazosin 5 mg PO HS 01/29/19 01/29/19 History Allergies Allergy/AdvReac Type Severity Reaction Status Date / Time hydrocodone AdvReac Unknown Vicodin = Verified 01/29/19 13:42 stroke-like sxs tramadol AdvReac Unknown Stroke-like Verified 01/29/19 13:42 symptoms Past Med/Surg History Medical History CVA (cerebral vascular accident) Chest pain Heart attack Surgical History Hx of CABG Social History Preferred Language: Estonian Feels Safe at Home: Yes Smoking Status: Former smoker Hx Alcohol Use: Yes Alcohol type: beer Alcohol type Comment: occasional Hx Substance Use: No Review of Systems See HPI for pertinent positives & negatives. and A total of 10 systems reviewed and were otherwise negative Physical Exam Vital Signs Vital Signs - 24 hr 01/29/19 12:13 01/29/19 12:17 01/29/19 12:27 Temperature 36.7 C Temperature Source Oral Sepsis Recent Fever Within 48 Hours No Sepsis New/Unexplained Change in Mental Status No Sepsis Action Taken by Nursing No Action Required Pulse Rate 63 71 Pulse Rate from SpO2 Sensor 64 Pulse Rhythm Regular Pulse Strength Normal Respiratory Rate 14 24 Respiratory Effort / Characteristics Non-Labored Respiratory Depth Normal Blood Pressure 147/73 H 147/73 H Blood Pressure Mean 97 97 Blood Pressure Position Lying Pulse Oximetry 95 96 96 Oxygen Delivery Method Room Air Room Air 01/29/19 12:30 01/29/19 13:02 01/29/19 13:30 Temperature Temperature Source Sepsis Recent Fever Within 48 Hours Sepsis New/Unexplained Change in Mental Status Sepsis Action Taken by Nursing Pulse Rate 61 58 L 57 L Pulse Rate from SpO2 Sensor 61 58 L 61 Pulse Rhythm Pulse Strength Respiratory Rate 22 18 17 Respiratory Effort / Characteristics Respiratory Depth Blood Pressure 128/71 145/69 H 149/94 H Blood Pressure Mean 90 94 112 Blood Pressure Position Pulse Oximetry 94 95 Oxygen Delivery Method 01/29/19 13:57 01/29/19 14:00 01/29/19 14:30 Temperature Temperature Source Sepsis Recent Fever Within 48 Hours Sepsis New/Unexplained Change in Mental Status Sepsis Action Taken by Nursing Pulse Rate 58 L 60 71 Pulse Rate from SpO2 Sensor 58 L 58 L 63 Pulse Rhythm Pulse Strength Respiratory Rate 24 27 H 20 Respiratory Effort / Characteristics Respiratory Depth Blood Pressure 179/96 H 181/71 H 158/88 H Blood Pressure Mean 123 107 111 Blood Pressure Position Pulse Oximetry 97 97 94 Oxygen Delivery Method Room Air GENERAL: Sitting up in bed, talking in full sentences, alert, well appearing, well nourished, no distress, non-toxic EYE EXAM: normal conjunctiva. OROPHARYNX: no exudate, no erythema, lips, buccal mucosa, and tongue normal and mucous membranes are moist NECK: supple, no nuchal rigidity, no adenopathy, non-tender LUNGS: Clear to auscultation. Normal chest wall mechanics CHEST: Old midline incision HEART: no murmurs, S1 normal and S2 normal ABDOMEN: abdomen soft, non-tender, normo-active bowel sounds, no masses, no rebound or guarding. BACK: Back is symmetrical on inspection and there is no deformity, no midline tenderness, no CVA tenderness. SKIN: no rashes and no bruising UPPER EXTREMITIES: upper extremities are grossly normal. LOWER EXTREMITIES: No pitting edema. Calves equal bilaterally. NEURO EXAM: Normal sensorium, cranial nerves II-XII grossly intact, normal speech, no gross weakness of arms, no gross weakness of legs. Course ED COURSE: Vital signs were reviewed and were hypertensive The patients medical record was reviewed The above diagnostic studies were performed and reviewed. ED treatments and interventions as stated above. 1247: The patient was evaluated in room A02. A complete history and physical examination was performed. He declined nitroglycerin. 1330: I spoke [place] [facility] [place] will evaluate for further management. 1337: I updated the patient on his results. I discussed my findings with the patient and he understands and agrees with the treatment plan. Based on the patients age, coexisting illnesses, exam and lab findings the decision to treat as an inpatient was made. The patient remained stable while under my care. The patient will be evaluated for further management. Administered Medications Discontinued Medications Fentanyl Citrate (Fentanyl Citrate) 50 mcg IV NOW STA Stop: 01/29/19 12:45 Last Admin: 01/29/19 13:55 Dose: Not Given Documented by: [id number] Medical Decision Making Differential Diagnosis the differential was considered includes acute myocardial infarction, acute coronary syndrome, myocarditis, pericarditis, pericardial effusions /tamponad, esophageal perforation, thoracic aortic dissection, pulmonary embolism, pneumonia, pneumothorax, pancreatitis, shingles, acute cholecystitis, perforated abdominal viscus. Medical Records Attestation: I reviewed the patient's medical records. Home Medications Current Medication List: was personally reviewed by me Laboratory Data Attestation: I reviewed the patient's lab results. Result diagrams: 01/29/19 12:53 01/29/19 12:53 Lab Results 01/29/19 01/29/19 Range/Units 12:53 12:53 WBC 6.30 (4.8-10.8) K/uL RBC 4.45 L (4.7-6.1) M/uL Hgb 14.0 (14.0-18.0) g/dL Hct 41.8 L (42-52) % MCV 93.9 (80-100) fL MCH 31.5 (25-34) pg MCHC 33.5 (32-36) g/dL RDW Std Deviation 46.3 (36.4-46.3) fL RDW Coeff of Carol 13.5 (11.5-14.5) % Plt Count 140 (130-400) K/uL MPV 11.3 H (7.4-10.4) fL Immature Gran % (Auto) 0.2 % Neut % (Auto) 57.0 % Lymph % (Auto) 28.7 % Jackson % (Auto) 10.0 % Eos % (Auto) 3.8 % Baso % (Auto) 0.3 % Immature Gran # (Auto) 0.01 (0.00-0.02) K/uL Neut # (Auto) 3.59 (1.4-6.5) K/uL Lymph # (Auto) 1.81 (1.2-3.4) K/uL Jackson # (Auto) 0.63 H (0.11-0.59) K/uL Eos # (Auto) 0.24 (0-0.5) K/uL Baso # (Auto) 0.02 (0-0.2) K/uL Sodium 142 (136-145) mmol/L Potassium 4.9 (3.5-5.1) mmol/L Chloride 108 H (98-107) mmol/L Carbon Dioxide 28 (21-32) mmol/L Anion Gap 6.0 (3-11) BUN 17 (7-18) mg/dl Creatinine 0.97 (0.6-1.4) mg/dl Est Cr Clr Drug Dosing 65.6 ml/min Est GFR ( Amer) 83.9 Est GFR (Non-Af Amer) 72.4 BUN/Creatinine Ratio 18.1 (10-20) Glucose 80 (70-99) mg/dl Calcium 9.7 (8.5-10.1) mg/dl Total Bilirubin 0.5 (0.2-1) mg/dl AST 17 (15-37) U/L ALT 22 (12-78) U/L Alkaline Phosphatase 40 L (45-117) U/L Troponin I < 0.015 (0-0.045) ng/ml Total Protein 7.2 (6.4-8.2) gm/dl Albumin 3.7 (3.4-5.0) gm/dl Globulin 3.5 (2.5-4.0) gm/dl Albumin/Globulin Ratio 1.1 (0.9-2) Lipase 126 (73-393) U/L Imaging Data Radiologist's Impression: Radiology results as stated below per my review and the radiologist's interpretation: XR chest 1V portable CLINICAL HISTORY: Chest Pain dyspnea COMPARISON STUDY: 03/26/2018 FINDINGS: Myocardial megaly. Prior median sternotomy. Calcified pleural plaques as well as diaphragmatic scarring bilaterally. All findings are considered chronic. No acute infiltrate. IMPRESSION: Chronic and postoperative change. No acute process. The above report was generated using voice recognition software. It may contain grammatical, syntax or spelling errors. Electronically signed by: Arslan Gomez M.D. 01/29/2019 12:45 PM ECG Data Attestation: I personally reviewed and interpreted this ECG as follows: Indication: chest pain Rate (beats per minute): 61 Rhythm: sinus rhythm Findings: + other (poor inferior base, t wave flat inferior lead) and + T-wave inversion (Lateral) Comparison ECG Date: from (11/04/17) Change: the following changes noted (new lateral lead finding ) Blood Pressure Blood Pressure Findings: Elevated blood pressure Blood Pressure Disposition: further management by hospitalist NIRANJAN Narrative Patient is an 83-year-old male who presents the ER for chest pressure associated with back pain and some shortness of breath. He notes he has had 15 stents placed previously and 2 previous bypasses. He notes this feels exact like his previous DC. He was given nitro and aspirin prior to arrival. He notes his pain improved significantly but he still had some mild pain. He denied/declined any additional nitro. Ordered fentanyl which he declined as well as his pain completely resolved. He was hypertensive. CBC shows no significant leukocytosis or anemia. BMP along with LFTs bilirubin and lipase was unremarkable. Chest x-ray without any focal infiltrate. Patient was updated bedside. Patient was admitted to hospitalist with precordial chest pain consistent with previous DC, negative troponin and EKG with lateral T wave changes. Patient was admitted pain-free. Discussed with Pt concerning signs and symptoms to watch out for. Pt was instructed to follow up with their PCP and discussed with the patient their option to return to the ED at anytime for persistent or worsening symptoms. The appropriate anticipatory guidance and out- patient management, including indications for return to the emergency department, were explained at length to the patient and understood. Impression & Plan Chest pain, precordial, Shortness of breath, Back pain Discharge Plan Visit Data *Final* Discharge Date/Time: 01/29/19 15:24 Chief Complaint: Cardiac Assessment ED Provider: Daniel Trejo Discharge Problem: Chest pain, precordial, Shortness of breath, Back pain Patient Disposition: Admitted As Inpatient Discharge Instructions Interventions: ED Discharge Assessment Last Done: 01/29/19 15:24 Discharge Problem: Back pain Qualifiers: Back pain location: thoracic back pain Chronicity: acute Back pain laterality: midline Qualified Code(s): M54.6 - Pain in thoracic spine The scribe's documentation has been prepared under my direction and personally reviewed by me in its entirety. I confirm that the note above accurately reflects all work, treatment, procedures, and medical decision making performed by me.
[2019-01-29] MEDS: METFORMIN HCL 500 MG TAB PO SCH (17:57)
[2019-01-29] MEDS: PREGABALIN 75 MG CAP PO SCH (20:15)
[2019-01-29] MEDS: METOPROLOL TARTRATE 25 MG TAB PO SCH (20:15)
[2019-01-29] MEDS: DOCUSATE SODIUM 100 MG CAP PO SCH (20:16)
[2019-01-29] MEDS ORDERED: TERAZOSIN HCL 5 MG CAP PO SCH (21:00)
[2019-01-29] MEDS ORDERED: FINASTERIDE 5 MG TAB PO SCH (21:00)
[2019-01-29] MEDS ORDERED: NON-FORMULARY MEDICATION (Coenzyme Q10 [Coq-10] 100 MG) PO SCH (21:00)
[2019-01-29] MEDS ORDERED: ASPIRIN 81 MG ECTAB PO SCH (21:00)
[2019-01-30] MEDS: ACETAMINOPHEN 325 MG TAB PO PRN ×2 (03:04→15:53)
[2019-01-30] MEDS: DOCUSATE SODIUM 100 MG CAP PO SCH (08:04)
[2019-01-30] MEDS: METOPROLOL TARTRATE 25 MG TAB PO SCH (08:04)
[2019-01-30] MEDS: METFORMIN HCL 500 MG TAB PO SCH ×2 (08:05→17:16)
[2019-01-30] MEDS: PREGABALIN 75 MG CAP PO SCH (08:06)
[2019-01-30] MEDS ORDERED: PANTOprazole 40 MG TAB PO SCH (09:00)
[2019-01-30] MEDS ORDERED: OMEGA-3 (PURIFIED FISH OIL) 1 GM CAP PO SCH (09:00)
[2019-01-30] MEDS ORDERED: CLOPIDOGREL BISULFATE 75 MG TAB PO SCH (09:00)
[2019-01-30] MEDS ORDERED: CYANOCOBALAMIN 500 MCG TABLET (VITAMIN B-12) PO SCH (09:00)
[2019-01-30] MEDS ORDERED: ROSUVASTATIN CALCIUM 20 MG TAB PO SCH (09:00)
[2019-01-30] MEDS ORDERED: NON-FORMULARY MEDICATION (Potassium Gluconate 550 MG) PO SCH (09:00)
[2019-01-30] MEDS ORDERED: MELOXICAM 7.5 MG TAB PO SCH (09:00)
--- NOTE | 2019-01-30 15:45 | Cardiology Consultation ---
Date of Consultation January 30, 2019 Assessment & Plan (1) Chest pain: His symptoms are somewhat atypical in the sense that they often involved back discomfort that responds well to an analgesic cream. Additionally the symptoms are nonexertional and fairly constant in nature at times. The did not appear to be worsened with any activity. He has had similar symptoms over an extended period in the past. Given the nature of his symptoms, the extended duration and absence of biomarker elevation I do not believe his current presentation is consistent with an acute coronary syndrome or angina. He did undergo stress testing earlier this year. It appears that was performed primarily for his persistent complaint of dyspnea with activity. That was felt to be negative for ischemia although he does have a baseline cardiomyopathy. Whether he should undergo additional cardiac imaging such as perfusion imaging is unclear and I will discuss this with his primary civil engineering director. I think he could safely be discharged on his current medical regimen without any additional testing. (2) Shortness of breath: This appears to be longstanding in nature. He does not appear to be in decompensated heart failure either on exam or by history. There are no objective findings of pulmonary edema. This does not appear to be related to ischemia based on his prior evaluation. (3) Coronary artery disease: He has an extensive history of both coronary and peripheral vascular disease. His last invasive evaluation revealed patent stents. He is being maintained on dual anti-platelet therapy beta-blockade and high-dose rosuvastatin. In the past he was placed on nitrate therapy but this appeared to worsen some of his symptoms. (4) Ischemic cardiomyopathy: His ejection fraction was last echocardiogram, August of this year revealed reduced LV systolic function with estimated ejection fraction of 45 percent. Prior echocardiography revealed preserved LV systolic function. He appears to be well compensated currently. He is on beta-blockade but may benefit from the addition of Peyman inhibition and a switch from his metoprolol tartrate to succinate as well. (5) Frequent PVCs: He does have occasional PVCs on the monitor. He does not appear to be symptomatic. No sustained arrhythmias. It is likely this arrhythmia which triggered his phone application to alert him about an abnormal rhythm. History of Present Illness Reason for Consultation: Chest pain Requesting Physician: Sera Attending Physician: Jose Zamora History of Present Illness The patient is an 81-year-old gentle with an extensive history of both peripheral vascular coronary disease presented to the hospital with symptoms of atypical chest discomfort. Patient states that over the past few days he has been using an sreekanth on his phone in order to monitor his heart rate. The told him to seek attention from his physician based on a presumed arrhythmia. He an appointment with his primary care physician in based on his complaints and his EKG he was symptomatic [facility] for [facility]. It seems that his most recent symptoms involved a sense of discomfort on the back of his neck and shoulders. He also reports some episodes of substernal chest discomfort. He states that the symptoms waxed and waned in severity over the past few days but in general were constant in nature. The did not appear to be associated with any activity. They were not relieved with any particular activity or made worse with activity. No specific remedy was employed by the patient for relief. Additionally, he continues to have an element of dyspnea with activity. He has feels that this is fairly stable over the past several months but does impair his activity to some degree. He denies orthopnea or paroxysmal nocturnal dyspnea. He has not had breathing difficulty at rest. Currently is feeling well. He does endorse some symptoms of chest discomfort at rest which appears to have been present throughout his admission. He did ambulate through the hallways and felt well without any worsening of his symptoms. Allergies Allergy/AdvReac Type Severity Reaction Status Date / Time hydrocodone AdvReac Unknown Vicodin = Verified 01/29/19 13:42 stroke-like sxs tramadol AdvReac Unknown Stroke-like Verified 01/29/19 13:42 symptoms Home Medications Home Medications Medication Instructions Recorded Confirmed Type aspirin 81 mg PO HS 01/29/19 01/29/19 History clopidogrel 75 mg PO QAM 01/29/19 01/29/19 History coenzyme Q10 [CoQ-10] 100 mg PO BID 01/29/19 01/29/19 History cyanocobalamin (vitamin B-12) 1,000 mcg PO QAM 01/29/19 01/29/19 History docusate sodium [Colace] 100 mg PO BID 01/29/19 01/29/19 History finasteride [Proscar] 5 mg PO HS 01/29/19 01/29/19 History meloxicam 15 mg PO QAM 01/29/19 01/29/19 History metformin 500 mg PO BID 01/29/19 01/29/19 History metoprolol tartrate 25 mg PO BID 01/29/19 01/29/19 History omega-3 fatty acids-fish oil [Fish 1 cap PO QAM 01/29/19 01/29/19 History Oil] pantoprazole [Protonix] 40 mg PO QAM 01/29/19 01/29/19 History potassium gluconate 550 mg PO QAM 01/29/19 01/29/19 History pregabalin [Lyrica] 75 mg PO BID 01/29/19 01/29/19 History rosuvastatin [Crestor] 40 mg PO QAM 01/29/19 01/29/19 History terazosin 5 mg PO HS 01/29/19 01/29/19 History Patient History Medical History CVA (cerebral vascular accident) Chest pain Heart attack Surgical History Hx of CABG Social History Preferred Language: Kinyarwanda Communication Ability: Effective Press Set Up Required: No Beliefs That Will Affect Care: None Current Living Situation: Spouse Feels Safe at Home: Yes Smoking Status: Current every day smoker Hx Alcohol Use: Yes Alcohol type: beer Alcohol type Comment: occasional Hx Substance Use: No Review of Systems Review of Systems: All systems reviewed & are unremarkable except as noted in HPI & below No recent sense of palpitations. No dizziness or lightheadedness. Physical Exam Physical Exam: The patient is alert and oriented. Mood and affect appeared normal. He answered all questions appropriately. HEENT: Pupils are equal and reactive to light and accommodation. Extraocular movements are intact. The sclerae are anicteric. Neuro: Cranial nerves intact Neck: Patient's neck is supple. He has palpable carotid pulses bilaterally without bruits on auscultation. There is no evidence of jugular venous distention. The thyroid is not enlarged. Lungs: Clear to auscultation bilaterally. He has good air movement without use of accessory muscles. No rales wheezes or rhonchi. Cardiac: Heart demonstrates a regular rate and rhythm with occasional ectopy. Normal S1 and S2. No murmurs on examination. Pulses: The patient has palpable radial pulses bilaterally that are equal in intensity Extremities: There was no evidence of hypoperfusion. There is no cyanosis or clubbing. There is no edema. Skin: I did not appreciate any rashes on examination today. Results & Data Vital Signs (Past 12 Hours) Vital Signs Temp Pulse Pulse Resp BP BP Pulse Ox 01/30/19 11:48 36.5 C 62 15 148/76 H 94 01/30/19 08:24 59 L 01/30/19 08:04 36.6 C 67 20 129/62 94 01/30/19 03:46 36.5 C 64 16 111/56 L 98 Laboratory Results Abnormal Lab Results 01/29/19 01/29/19 01/29/19 16:27 20:06 22:02 POC Glucose 101 H Troponin I < 0.015 < 0.015 01/30/19 01/30/19 07:39 11:53 POC Glucose 90 89 Troponin I Diagnostic Findings Chest x-ray obtained at the time of admission which did not reveal any acute cardiopulmonary process ECG Additional Comments: EKG obtained the time admission revealed normal sinus rhythm with PVCs. Nonspecific ST and T-wave changes PG Care Time/CCT Total # of Minutes Spent Total Time Spent with Patient: Total time spent is greater than 50% in coordination of care (as documented) at patient's floor/unit and/or counseling patient:
== END 2019-01-30 18:31 | disposition home or self-care (01) ==
LOC: 2N 12:06 → ED 12:06 → SUATTDRO 14:31 → 2N 15:24

== ENCOUNTER 2020-08-17 08:50 | Observation (INO) ==
[2020-08-17] MEDS ORDERED: ONDANSETRON INJ 2 MG/ML 2 ML VIAL IV STA (08:58)
[2020-08-17] MEDS ORDERED: ASPIRIN CHEW 324 MG PO STA (08:58)
[2020-08-17 09:39] LABS: Basophils # (auto) 0.02 K/uL (0-0.2); Basophils % (auto) 0.3 %; Eosinophils # (auto) 0.14 K/uL (0-0.5); Eosinophils % (auto) 2.2 %; Hematocrit (blood only) 45.4 % (42-52); Hemoglobin 15.6 g/dL (14.0-18.0); Lymphocytes % (auto) 25.4 %; Mean Corpuscular Hemoglobin 31.8 pg (25-34); Mean Corpuscular Hgb Conc 34.4 g/dL (32-36); Mean Corpuscular Volume 92.5 fL (80-100); Monocytes # (auto) 0.62 K/uL (0.11-0.59); Monocytes % (auto) 9.8 %; Neutrophils # (auto) 3.93 K/uL (1.4-6.5); Neutrophils % (auto) 62.3 %; Platelet Count 167 K/uL (130-400); RDW Coefficient of Variation 13.7 % (11.5-14.5); RDW Standard Deviation 46.5 fL (36.4-46.3); Red Blood Count 4.91 M/uL (4.7-6.1); White Blood Count 6.31 K/uL (4.8-10.8)
[2020-08-17 09:44] LABS: Base Excess VBG 4.5 mEq/L; Oxygen Saturation VBG 60.2 %; pH VBG 7.44 (7.36-7.41)
[2020-08-17 09:51] LABS: INR 1.1 (0.9-1.1); Prothrombin Time 10.9 Seconds (9.0-12.0)
[2020-08-17 09:53] LABS: D Dimer 1380 ug/L FEU (0-500)
[2020-08-17 09:57] LABS: BUN Creatinine Ratio 15.8 (10-20); Blood Urea Nitrogen 14 mg/dl (7-18); Calcium 10.3 mg/dl (8.5-10.1); Carbon Dioxide 28 mmol/L (21-32); Chloride 107 mmol/L (98-107); Creatinine Clr Calc Pharmacy 69.4 ml/min; Est GFR (African American) 91.9; Est GFR (Non-African American) 79.3; Glucose 121 mg/dl (70-99); Lipase 127 U/L (73-393); Magnesium 2.1 mg/dl (1.8-2.4); Potassium 3.8 mmol/L (3.5-5.1); Sodium 140 mmol/L (136-145)
[2020-08-17 10:02] LABS: NT Pro B Type Natriuretic Pept 135 pg/ml (0-1800); Troponin I < 0.015 ng/ml (0-0.045)
[2020-08-17 10:20] LABS: Influenza A virus by PCR Negative (Neg); Influenza B virus by PCR Negative (Neg); RSV by PCR Negative (Neg); SARS CoV2 RNA(COVID-19) InHosp NEGATIVE (Negative)
[2020-08-17] MEDS ORDERED: OPTIRAY 320 125ml IV ONE (11:09)
--- NOTE | 2020-08-17 11:48 | CT Scan Report ---
CHEST CTA for PULMONARY ARTERIES CT DOSE: 332.44 mGy.cm HISTORY: Atypical chest pain. Shortness of breath. TECHNIQUE: Multiaxial CT images of the chest were performed following the intravenous administration of contrast to evaluate the pulmonary arteries. Maximal intensity projection images were also obtaine d. A dose lowering technique was utilized adhering to the principles of ALARA. COMPARISON STUDY: Chest CT 11/07/2017. FINDINGS: The visualized liver, spleen, and adrenal glands unremarkable. The heart is enlarged. Chel l esophagus. No mediastinal hilar lymphadenopathy. No pleural or pericardial effusions. There are pos tsternotomy changes. 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 No suspicious lytic are daina stic osseous lesions. The central airways are patent. No pneumothorax. Mild emphysema. No new focal l wagner consolidations to suggest pneumonia. There is respiratory motion artifact. This results in nondia gnostic evaluation of the majority of the right lower lobe and right middle lobe segmental/subsegment al pulmonary arteries. However, the remaining pulmonary arteries show no filling defects to suggest p ulmonary embolus. Extensive calcified plaque within the proximal left vertebral artery which is likel y chronically occluded. This remains unchanged. Normal caliber thoracic aorta with no evidence for di ssection. IMPRESSION: 1. No evidence for pulmonary embolus with limitations as described above. 2. 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 4. Cardiomegaly. 5. No focal lung consolidations to suggest pneumonia. ACT 112: Negative or not required by law. Electronically signed by: Dav Sorenson M.D. 08/17/2020 11:47 AM
--- NOTE | 2020-08-17 11:55 | XRay Report ---
XR chest 2V PA/lateral HISTORY: Atypical Chest Pain COMPARISON: Chest 03/01/2020. FINDINGS: No change in the bilateral calcified pleural plaques. Cardiac silhouette is borderline enla rged. There are poststernotomy changes. No pneumothorax. No pleural effusions. No new focal lung cons olidations to suggest pneumonia. No evidence for pulmonary edema. There is mild emphysema. IMPRESSION: No significant change compared to the prior study. No acute process. ACT 112: Negative or not required by law. Electronically signed by: Dav Sorenson M.D. 08/17/2020 11:54 AM
--- NOTE | 2020-08-17 13:30 | History & Physical Report ---
Date of Service August 17, 2020 Assessment & Plan (1) Chest pain, precordial: 85-year-old male with past medical history CABG x5 (Initial May 1985, most recently Feb 2016), coronary artery disease, hypertension, hyperlipidemia, type 2 diabetes with neuropathy, BPH, GERD, arthritis presents with chest pain admitted for rule out. Chest Pain: Admit to telemetry EKG on arrival shows sinus rhythm with occasional Premature ventricular complexes. When compared to ECG of January 2019, no segment changes were found Troponin admission negative, will trend every 6 hours x2 Elevated dimer 1380, subsequent CTA negative for PE in ER Initial findings not concerning for ACS, but given significant cardiac history will admit for rule out Will not start on a heparin drip at present Morphine and nitroglycerin as needed chest pain Defer cardiology consult at present Echo ordered as well as hemoglobin A1c and fasting lipid panel Last echo July 2016: Normal left ventricular size with low-normal systolic function. Estimated EF 50-55%. Akinesis of basal septum and basal inferior wall. Hypokinesis of inferolateral wall and mid inferior wall segments. Mild concentric left ventricular hypertrophy. Type 1 diastolic dysfunction Aspirin initiated, will continue high-dose statin rosuvastatin 40 mg History of CABGx5/HTN/HLD/CAD: We will continue rosuvastatin 40 mg, metoprolol tartrate 25 mg twice daily, clopidogrel 75 mg, aspirin 81 mg, amlodipine 5 mg DM2 with neuropathy: Holding home metformin. Will place on SSI No previous A1c on file. Will obtain as above Continue Lyrica 75 mg twice daily BPH: Continue finasteride 5 mg, Terazosin 5 mg GERD: Continue pantoprazole 40 mg FEN/GI: Heart healthy/DM 2 diet DVT prophylaxis: Lovenox SQ CODE STATUS: DNR/DNI Dispo: PCU telemetry (2) 3-vessel CAD: History of Present Illness Chief Complaint: Chest pain Primary Care Provider: Abram Estrada [place] is a 85-year-old male with PMH significant for CABG x5 vessels (Initial May 1985, most recently Feb 2016), coronary artery disease, HTN, HLD, T2DM with neuropathy, BPH, GERD, arthritis; who presented to the ED with chest pain on exertion over the last 24 hours. Yesterday while at home, when he was getting up to walk and move around within the house he noticed that he was having a significantly hard time catching his breath, and was finding himself winded more easily. He was also having chest pain/pressure during this time, but thought since he was planning to travel to see his daughter in [place] the next day that it would go away and nothing would be problematic. As he has a home EKG (that he utilizes twice a day normally) he used and saw that the readings "were all over the place and crazy", decided that this must just be something weird and put it off. This morning upon waking and continuing to have this feeling, he realized that he should do something about this, and took an Aspirin told his , and came to the hospital. In the ED he received sublingual nitroglycerin, and full dose Aspirin. He presently has a headache (which he states he gets every time he has to take nitroglycerin), but otherwise feels well with no current chest pain/discomfort/pressure, no shortness of breath, no lightheadedness, no dizziness, no weakness. Allergies Allergy/AdvReac Type Severity Reaction Status Date / Time hydrocodone AdvReac Unknown Vicodin = Verified 08/17/20 10:07 stroke-like sxs tramadol AdvReac Unknown Stroke-like Verified 08/17/20 10:07 symptoms Home Medications Medication Instructions Recorded Confirmed Type aspirin 81 mg PO HS 01/29/19 08/17/20 History clopidogrel 75 mg PO QAM 01/29/19 08/17/20 History coenzyme Q10 [CoQ-10] 100 mg PO BID 01/29/19 08/17/20 History cyanocobalamin (vitamin B-12) 1,000 mcg PO QAM 01/29/19 08/17/20 History docusate sodium [Colace] 100 mg PO BID 01/29/19 08/17/20 History finasteride [Proscar] 5 mg PO HS 01/29/19 08/17/20 History metformin 500 mg PO BID 01/29/19 08/17/20 History metoprolol tartrate 25 mg PO BID 01/29/19 08/17/20 History pantoprazole [Protonix] 40 mg PO QAM 01/29/19 08/17/20 History potassium gluconate 550 mg PO QAM 01/29/19 08/17/20 History pregabalin [Lyrica] 75 mg PO BID 01/29/19 08/17/20 History rosuvastatin [Crestor] 40 mg PO HS 01/29/19 08/17/20 History terazosin 5 mg PO HS 01/29/19 08/17/20 History nitroglycerin [Nitrostat] 0.4 mg SUBLINGUAL UD PRN #1 btl 01/30/19 08/17/20 Rx acetaminophen 650 mg 650 mg PO DAILY PRN tab 02/03/19 08/17/20 History tablet,extended release amlodipine 5 mg tablet 5 mg PO DAILY tab 02/03/19 08/17/20 History folic acid 1 mg tablet 2 mg PO DAILY #150 tab 02/03/19 08/17/20 History Past Med/Surg History Medical History (Updated 08/17/20 @ 15:30 by Elver Layton) Chest pain CVA (cerebral vascular accident) Heart attack Surgical History Hx of CABG Family History Denies family history of Myocardial infarction Social History Smoking Status: Former smoker Number of Years Since Quit: 40; Hx Alcohol Use: Yes Alcohol type: beer Alcohol type Comment: occasional Hx Substance Use: No Preferred Language: [place]amb[place] Communication Ability: Effective Er Rn Required: No Beliefs That Will Affect Care: None Current Living Situation: Spouse Other Information That Helps Us Care for You: No Feels Safe at Home: Yes Safety Concerns: Feels Safe At This Time Assistive Devices: Cane Review of Systems Review of Systems: All systems reviewed & are unremarkable except as noted in HPI & below Physical Exam Constitutional: WD/WN, vitals as above Eyes: PERRL, conjunctivae normal, anicteric sclerae Respiratory: normal respiratory effort; no respiratory distress, no labored breathing, no cough and no audible wheezes Cardiovascular: Rate/Rhythm: regular rate and regular rhythm Heart Sounds: no gallop, no murmur and no cardiac rub Vessels: normal peripheral pulses; no JVD Extremities: no edema Gastrointestinal (Abdomen): normal bowel sounds, soft, nontender, no hepatosplenomegaly Skin: no rashes, warm and dry Neurologic: PERRL, EOMI, accommodation nl, no face palsy, no dysarthria CN's II-XI intact bilaterally, deep tendon reflexes 2+ bilaterally and moves all extremities Psychiatric: Orientation: alert and oriented x 3 Results & Data Results & Data ([facility]) Vital Signs (Past 12 Hours) Vital Signs Temp Pulse Resp BP Pulse Ox 08/17/20 12:31 60 24 95 08/17/20 12:30 58 L 22 139/63 92 08/17/20 12:03 57 L 23 162/84 H 91 08/17/20 11:30 62 20 157/62 H 91 08/17/20 11:17 62 19 172/72 H 97 08/17/20 10:30 57 L 21 129/56 L 95 08/17/20 10:00 62 20 142/67 H 92 08/17/20 09:50 61 19 90 08/17/20 09:40 61 17 93 08/17/20 09:31 65 29 H 91 08/17/20 09:30 68 22 152/78 H 92 08/17/20 09:00 66 27 H 155/77 H 95 08/17/20 08:56 67 24 158/76 H 08/17/20 08:55 36.8 C 68 20 158/76 H 98 Laboratory Results 08/17/20 08/17/20 08/17/20 Range/Units Unknown 09:20 08:59 WBC 6.31 (4.8-10.8) K/uL RBC 4.91 (4.7-6.1) M/uL Hgb 15.6 (14.0-18.0) g/dL Hct 45.4 (42-52) % MCV 92.5 (80-100) fL MCH 31.8 (25-34) pg MCHC 34.4 (32-36) g/dL RDW Std Deviation 46.5 H (36.4-46.3) fL RDW Coeff of Carol 13.7 (11.5-14.5) % Plt Count 167 (130-400) K/uL MPV 12.0 H (7.4-10.4) fL Immature Gran % (Auto) 0.0 % Neut % (Auto) 62.3 % Lymph % (Auto) 25.4 % Warren % (Auto) 9.8 % Eos % (Auto) 2.2 % Baso % (Auto) 0.3 % Neut # (Auto) 3.93 (1.4-6.5) K/uL Lymph # (Auto) 1.60 (1.2-3.4) K/uL Warren # (Auto) 0.62 H (0.11-0.59) K/uL Eos # (Auto) 0.14 (0-0.5) K/uL Baso # (Auto) 0.02 (0-0.2) K/uL Immature Gran # (Auto) 0.00 (0.00-0.02) K/uL PT (9.0-12.0) Seconds INR (0.9-1.1) APTT (21.0-31.0) Seconds PTT Ratio D-Dimer (0-500) ug/L FEU VBG pH 7.44 H (7.36-7.41) VBG pCO2 44 (38-50) mmHg VBG pO2 30 mmHg VBG HCO3 29 mmol/L VBG O2 Saturation 60.2 % VBG Base Excess 4.5 mEq/L Barometric Pressure 732.4 mm/Hg Sodium 140 (136-145) mmol/L Potassium 3.8 (3.5-5.1) mmol/L Chloride 107 (98-107) mmol/L Carbon Dioxide 28 (21-32) mmol/L Anion Gap 4.0 (3-11) BUN 14 (7-18) mg/dl Creatinine 0.87 (0.6-1.4) mg/dl Est Cr Clr Drug Dosing 69.4 ml/min Est GFR ( Amer) 91.9 Est GFR (Non-Af Amer) 79.3 BUN/Creatinine Ratio 15.8 (10-20) Glucose 121 H (70-99) mg/dl Calcium 10.3 H (8.5-10.1) mg/dl Magnesium 2.1 (1.8-2.4) mg/dl Troponin I < 0.015 (0-0.045) ng/ml NT-Pro-B Natriuret Pep 135 (0-1800) pg/ml Lipase 127 (73-393) U/L COVID-19 Eval Order SARS-CoV-2 (PCR) (Negative) Influenza Type A (PCR) (Neg) Influenza Type B (PCR) (Neg) RSV (RT-PCR) (Neg) 03/31/21 03/31/21 03/31/21 Range/Units 08:59 08:39 08:39 WBC (4.8-10.8) K/uL RBC (4.7-6.1) M/uL Hgb (14.0-18.0) g/dL Hct (42-52) % MCV (80-100) fL MCH (25-34) pg MCHC (32-36) g/dL RDW Std Deviation (36.4-46.3) fL RDW Coeff of Carol (11.5-14.5) % Plt Count (130-400) K/uL MPV (7.4-10.4) fL Immature Gran % (Auto) % Neut % (Auto) % Lymph % (Auto) % Warren % (Auto) % Eos % (Auto) % Baso % (Auto) % Neut # (Auto) (1.4-6.5) K/uL Lymph # (Auto) (1.2-3.4) K/uL Warren # (Auto) (0.11-0.59) K/uL Eos # (Auto) (0-0.5) K/uL Baso # (Auto) (0-0.2) K/uL Immature Gran # (Auto) (0.00-0.02) K/uL PT 10.9 (9.0-12.0) Seconds INR 1.1 (0.9-1.1) APTT 26.0 (21.0-31.0) Seconds PTT Ratio 1.0 D-Dimer 1380 H* (0-500) ug/L FEU VBG pH (7.36-7.41) VBG pCO2 (38-50) mmHg VBG pO2 mmHg VBG HCO3 mmol/L VBG O2 Saturation % VBG Base Excess mEq/L Barometric Pressure mm/Hg Sodium (136-145) mmol/L Potassium (3.5-5.1) mmol/L Chloride (98-107) mmol/L Carbon Dioxide (21-32) mmol/L Anion Gap (3-11) BUN (7-18) mg/dl Creatinine (0.6-1.4) mg/dl Est Cr Clr Drug Dosing ml/min Est GFR ( Amer) Est GFR (Non-Af Amer) BUN/Creatinine Ratio (10-20) Glucose (70-99) mg/dl Calcium (8.5-10.1) mg/dl Magnesium (1.8-2.4) mg/dl Troponin I (0-0.045) ng/ml NT-Pro-B Natriuret Pep (0-1800) pg/ml Lipase (73-393) U/L COVID-19 Eval Order CovFluRsv at [facility] SARS-CoV-2 (PCR) NEGATIVE (Negative) Influenza Type A (PCR) Negative (Neg) Influenza Type B (PCR) Negative (Neg) RSV (RT-PCR) Negative (Neg) Code Status & VTE Plan Code Status DNR/DNI Supervising Physician Co-Signing Physician Notes I personally examined the patient and verified all childs points of history and exam, discussed case, and agree with decision making with Dr Martinez and Fred. Chest pain. Now resolved. Was about to get on the road to [place]. Vitals noted, in general he is awake and alert pleasant no distress. HEENT normocephalic atraumatic mucous membranes moist. Breathing unlabored no accessory muscle use good effort. Skin shows no rashes no pallor or icterus. Troponin negative, CT chest noted, EKG with flipped T's V45 and 6, but very similar to the EKG from 2019 Chest painrule out AR. If negative, probably stable for home. Consider outpatient follow-up with cardiology. Consider initiation of CORINNA inhibitor Mild hypercalcemiaoutpatient follow-up Otherwise as above Resident Activity Tracking Resident Involvement: Resident Care Provided Care Provided: Adult Hospital Medicine
--- NOTE | 2020-08-17 14:40 | Electrocardiogram Report ---
Test Reason : Blood Pressure : / mmHG Vent. Rate : 068 BPM Atrial Rate : 068 BPM P-R Int : 186 ms QRS Dur : 082 ms QT Int : 402 ms P-R-T Axes : 038 019 -16 degrees QTc Int : 427 ms Sinus rhythm with occasional Premature ventricular complexes Nonspecific T wave abnormality Abnormal ECG When compared with ECG of 30-JAN-2019 07:29, No significant change was found Confirmed by Sen Barba [id number]) on 08/17/2020 2:40:37 PM Referred By: REFERRED SELF Confirmed By:Sen Barba
--- NOTE | 2020-08-17 15:30 | Emergency Department Note ---
History of Present Illness General Chief Complaint: Chest Pain Time Seen by Provider: 08/17/20 08:52 History of Present Illness Provider Complaint: chest pain Onset (ago): day(s) 2 Duration: now resolved Onset: during rest Pain Location: substernal Pain Radiation: none Severity: mild Maximum Pain Intensity: 3 Current Pain Intensity: 3 Quality: + heaviness Relieved By: + nothing Exacerbated By: + nothing Context: no recent illness, no recent surgery, no recent immobilization, no recent travel, no trauma/injury, no new medications and no history of DVT/PE Associated symptoms: + dyspnea and + syncope (No syncope but feelings of near syncope); no nausea, no vomiting, no diaphoresis, no palpitations, no fever, no cough and no leg swelling Home Medications Medication Instructions Recorded Confirmed Type aspirin 81 mg PO 01/29/19 08/17/20 History clopidogrel 75 mg PO [facility] 01/29/19 08/17/20 History coenzyme Q10 [CoQ-10] 100 mg PO BID 01/29/19 08/17/20 History cyanocobalamin (vitamin B-12) 1,000 mcg PO M 01/29/19 08/17/20 History docusate sodium [Colace] 100 mg PO BID 01/29/19 08/17/20 History finasteride [Proscar] 5 mg PO 01/29/19 08/17/20 History metformin 500 mg PO BID 01/29/19 08/17/20 History metoprolol tartrate 25 mg PO BID 01/29/19 08/17/20 History pantoprazole [Protonix] 40 mg PO [facility] 01/29/19 08/17/20 History potassium gluconate 550 mg PO [facility] 01/29/19 08/17/20 History pregabalin [Lyrica] 75 mg PO BID 01/29/19 08/17/20 History rosuvastatin [Crestor] 40 mg PO 01/29/19 08/17/20 History terazosin 5 mg PO 01/29/19 08/17/20 History nitroglycerin [Nitrostat] 0.4 mg SUBLINGUAL UD PRN #1 btl 01/30/19 08/17/20 Rx acetaminophen 650 mg 650 mg PO DAILY PRN tab 02/03/19 08/17/20 History tablet,extended release amlodipine 5 mg tablet 5 mg PO DAILY tab 02/03/19 08/17/20 History folic acid 1 mg tablet 2 mg PO DAILY #150 tab 02/03/19 08/17/20 History Allergies Allergy/AdvReac Type Severity Reaction Status Date / Time hydrocodone AdvReac Unknown Vicodin = Verified 08/17/20 10:07 stroke-like sxs tramadol AdvReac Unknown Stroke-like Verified 08/17/20 10:07 symptoms Past Med/Surg History Medical History (Updated 08/17/20 @ 15:30 by Elver Layton) Chest pain CVA (cerebral vascular accident) Heart attack Surgical History Hx of CABG Family History Denies family history of Myocardial infarction Social History Smoking Status: Former smoker Number of Years Since Quit: 40; Hx Alcohol Use: Yes Alcohol type: beer Alcohol type Comment: occasional Hx Substance Use: No Preferred Language: Chinese Communication Ability: Effective Piano Maker Required: No Beliefs That Will Affect Care: None Current Living Situation: Spouse Feels Safe at Home: Yes Assistive Devices: Cane Review of Systems A total of 10 systems reviewed and were otherwise negative Physical Exam Vital Signs Vital Signs - 24 hr 08/17/20 08:55 08/17/20 08:56 08/17/20 09:00 Temperature 36.8 C Temperature Source Oral Pulse Rate 68 67 66 Pulse Rate from SpO2 Sensor 60 Respiratory Rate 20 24 27 H Respiratory Effort / Characteristics Non-Labored Respiratory Depth Normal Blood Pressure 158/76 H 158/76 H 155/77 H Blood Pressure Mean 103 103 103 Pulse Oximetry 98 95 Oxygen Delivery Method Room Air Sepsis Recent Fever Within 48 Hours No Sepsis New/Unexplained Change in Mental Status N/A Sepsis Action Taken by Nursing No Action Required 08/17/20 09:30 08/17/20 09:31 08/17/20 09:40 Temperature Temperature Source Pulse Rate 68 65 61 Pulse Rate from SpO2 Sensor 64 61 61 Respiratory Rate 22 29 H 17 Respiratory Effort / Characteristics Respiratory Depth Blood Pressure 152/78 H Blood Pressure Mean 102 Pulse Oximetry 92 91 93 Oxygen Delivery Method Sepsis Recent Fever Within 48 Hours Sepsis New/Unexplained Change in Mental Status Sepsis Action Taken by Nursing 08/17/20 09:50 08/17/20 10:00 08/17/20 10:30 Temperature Temperature Source Pulse Rate 61 62 57 L Pulse Rate from SpO2 Sensor 62 62 58 L Respiratory Rate 19 20 21 Respiratory Effort / Characteristics Respiratory Depth Blood Pressure 142/67 H 129/56 L Blood Pressure Mean 92 80 Pulse Oximetry 90 92 95 Oxygen Delivery Method Sepsis Recent Fever Within 48 Hours Sepsis New/Unexplained Change in Mental Status Sepsis Action Taken by Nursing 08/17/20 11:17 08/17/20 11:30 08/17/20 12:03 Temperature Temperature Source Pulse Rate 62 62 57 L Pulse Rate from SpO2 Sensor 58 L 56 L Respiratory Rate 19 20 23 Respiratory Effort / Characteristics Respiratory Depth Blood Pressure 172/72 H 157/62 H 162/84 H Blood Pressure Mean 105 93 110 Pulse Oximetry 97 91 91 Oxygen Delivery Method Sepsis Recent Fever Within 48 Hours Sepsis New/Unexplained Change in Mental Status Sepsis Action Taken by Nursing 08/17/20 12:30 08/17/20 12:31 08/17/20 12:40 Temperature Temperature Source Pulse Rate 58 L 60 66 Pulse Rate from SpO2 Sensor 58 L 57 L 65 Respiratory Rate 22 24 21 Respiratory Effort / Characteristics Respiratory Depth Blood Pressure 139/63 Blood Pressure Mean 88 Pulse Oximetry 92 95 95 Oxygen Delivery Method Sepsis Recent Fever Within 48 Hours Sepsis New/Unexplained Change in Mental Status Sepsis Action Taken by Nursing 08/17/20 14:26 08/17/20 14:31 08/17/20 15:01 Temperature Temperature Source Pulse Rate 69 71 58 L Pulse Rate from SpO2 Sensor Respiratory Rate 21 25 H 19 Respiratory Effort / Characteristics Respiratory Depth Blood Pressure 130/74 175/82 H 139/53 L Blood Pressure Mean 92 113 81 Pulse Oximetry Oxygen Delivery Method Sepsis Recent Fever Within 48 Hours Sepsis New/Unexplained Change in Mental Status Sepsis Action Taken by Nursing Physical Exam GENERAL: He is oriented to person, place, and time. He appears well-developed and well-nourished. He does not appear distressed. HENT: Exam performed. - Head: Normocephalic and atraumatic. - Right Ear: External ear normal. No mastoid tenderness. - Left Ear: External ear normal. No mastoid tenderness. - Mouth/Throat: The oropharynx is clear and moist. No trismus in the jaw. No dental abscesses or uvula swelling. No oropharyngeal exudate or tonsillar abscesses. EYES: Conjunctivae and EOM are normal. Pupils are equal, round, and reactive to light. Right eye exhibits no discharge. Left eye exhibits no discharge. No scleral icterus. NECK: Normal range of motion. Neck supple. No JVD present. No spinous process tenderness present. No carotid bruit present. No rigidity. No tracheal deviation and normal range of motion present. No Brudzinski's sign and no Kernig's sign noted. CV: Normal rate, regular rhythm, normal heart sounds and intact distal pulses. There is no peripheral edema. Palpable radial pulses bue. PULM/CHEST: Effort normal and breath sounds normal. No respiratory distress. No stridor. He has no wheezes. He has no rales. - Chest Wall: He exhibits no tenderness. ABD: The abdomen is soft. Bowel sounds are normal. He has no distension. No mass is present. There is no tenderness. There is no rebound, no guarding, no Brandon's sign and no tenderness at McBurney's point. Rovsig negative. MUSC/SKEL: Normal range of motion. There is no peripheral edema, tenderness or deformity. LYMPH: No cervical adenopathy. NEURO: He is alert and oriented to person, place, and time. He has normal strength. No cranial nerve deficit or sensory deficit. Coordination and gait normal. GCS eye subscore is 4. GCS verbal subscore is 5. GCS motor subscore is 6. Cerebellar tests wnl. SKIN: Skin is warm and dry. He is not diaphoretic. PSYCH: He has a normal mood and affect. Behavior is normal. Judgment and thought content normal. Course Course 0852: The patient was evaluated in room C2. A complete history and physical exam was performed Cardiac monitoring: An order was placed for continuous cardiac monitoring. The monitor shows a rate of 70 with sinus rhythm 1200: Vital signs stable. Labs within normal limits with exception of elevated D-dimer. CTA negative for PE. Patient will be admitted for chest pain rule out ACS given his high heart score. Dr. Brink [facility] hospitalist has been notified. Administered Medications Discontinued Medications Aspirin (Aspirin Chew 324 Mg) 324 mg PO NOW STA Stop: 08/17/20 08:59 Last Admin: 08/17/20 09:25 Dose: 324 mg Documented by: [id number] Ioversol (Optiray 320 125ml) 120 ml IV ONCE ONE Stop: 08/17/20 11:10 Last Admin: 08/17/20 11:09 Dose: 120 ml Documented by: [id number] Ondansetron HCl (Ondansetron Inj 2 Mg/Ml 2 Ml Vial) 4 mg IV NOW STA Stop: 08/17/20 08:59 Last Admin: 08/17/20 09:25 Dose: 4 mg Documented by: [id number] Medical Decision Making Laboratory Data Result diagrams: 08/17/20 Unknown 08/17/20 08:59 Labs: Lab Results 08/17/20 08/17/20 08/17/20 Range/Units 08:39 08:39 08:59 WBC (4.8-10.8) K/uL RBC (4.7-6.1) M/uL Hgb (14.0-18.0) g/dL Hct (42-52) % MCV (80-100) fL MCH (25-34) pg MCHC (32-36) g/dL RDW Std Deviation (36.4-46.3) fL RDW Coeff of Carol (11.5-14.5) % Plt Count (130-400) K/uL MPV (7.4-10.4) fL Immature Gran % (Auto) % Neut % (Auto) % Lymph % (Auto) % [place] % (Auto) % Eos % (Auto) % Baso % (Auto) % Neut # (Auto) (1.4-6.5) K/uL Lymph # (Auto) (1.2-3.4) K/uL [place] # (Auto) (0.11-0.59) K/uL Eos # (Auto) (0-0.5) K/uL Baso # (Auto) (0-0.2) K/uL Immature Gran # (Auto) (0.00-0.02) K/uL PT 10.9 (9.0-12.0) Seconds INR 1.1 (0.9-1.1) APTT 26.0 (21.0-31.0) Seconds PTT Ratio 1.0 D-Dimer 1380 H* (0-500) ug/L FEU VBG pH (7.36-7.41) VBG pCO2 (38-50) mmHg VBG pO2 mmHg VBG HCO3 mmol/L VBG O2 Saturation % VBG Base Excess mEq/L Barometric Pressure mm/Hg Sodium (136-145) mmol/L Potassium (3.5-5.1) mmol/L Chloride (98-107) mmol/L Carbon Dioxide (21-32) mmol/L Anion Gap (3-11) BUN (7-18) mg/dl Creatinine (0.6-1.4) mg/dl Est Cr Clr Drug Dosing ml/min Est GFR ( Amer) Est GFR (Non-Af Amer) BUN/Creatinine Ratio (10-20) Glucose (70-99) mg/dl Calcium (8.5-10.1) mg/dl Magnesium (1.8-2.4) mg/dl Troponin I (0-0.045) ng/ml NT-Pro-B Natriuret Pep (0-1800) pg/ml Lipase (73-393) U/L COVID-19 Eval Order CovFluRsv at [facility] SARS-CoV-2 (PCR) NEGATIVE (Negative) Influenza Type A (PCR) Negative (Neg) Influenza Type B (PCR) Negative (Neg) RSV (RT-PCR) Negative (Neg) 08/17/20 08/17/20 08/17/20 Range/Units 08:59 09:20 Unknown WBC 6.31 (4.8-10.8) K/uL RBC 4.91 (4.7-6.1) M/uL Hgb 15.6 (14.0-18.0) g/dL Hct 45.4 (42-52) % MCV 92.5 (80-100) fL MCH 31.8 (25-34) pg MCHC 34.4 (32-36) g/dL RDW Std Deviation 46.5 H (36.4-46.3) fL RDW Coeff of Carol 13.7 (11.5-14.5) % Plt Count 167 (130-400) K/uL MPV 12.0 H (7.4-10.4) fL Immature Gran % (Auto) 0.0 % Neut % (Auto) 62.3 % Lymph % (Auto) 25.4 % [place] % (Auto) 9.8 % Eos % (Auto) 2.2 % Baso % (Auto) 0.3 % Neut # (Auto) 3.93 (1.4-6.5) K/uL Lymph # (Auto) 1.60 (1.2-3.4) K/uL [place] # (Auto) 0.62 H (0.11-0.59) K/uL Eos # (Auto) 0.14 (0-0.5) K/uL Baso # (Auto) 0.02 (0-0.2) K/uL Immature Gran # (Auto) 0.00 (0.00-0.02) K/uL PT (9.0-12.0) Seconds INR (0.9-1.1) APTT (21.0-31.0) Seconds PTT Ratio D-Dimer (0-500) ug/L FEU VBG pH 7.44 H (7.36-7.41) VBG pCO2 44 (38-50) mmHg VBG pO2 30 mmHg VBG HCO3 29 mmol/L VBG O2 Saturation 60.2 % VBG Base Excess 4.5 mEq/L Barometric Pressure 732.4 mm/Hg Sodium 140 (136-145) mmol/L Potassium 3.8 (3.5-5.1) mmol/L Chloride 107 (98-107) mmol/L Carbon Dioxide 28 (21-32) mmol/L Anion Gap 4.0 (3-11) BUN 14 (7-18) mg/dl Creatinine 0.87 (0.6-1.4) mg/dl Est Cr Clr Drug Dosing 69.4 ml/min Est GFR ( Amer) 91.9 Est GFR (Non-Af Amer) 79.3 BUN/Creatinine Ratio 15.8 (10-20) Glucose 121 H (70-99) mg/dl Calcium 10.3 H (8.5-10.1) mg/dl Magnesium 2.1 (1.8-2.4) mg/dl Troponin I < 0.015 (0-0.045) ng/ml NT-Pro-B Natriuret Pep 135 (0-1800) pg/ml Lipase 127 (73-393) U/L COVID-19 Eval Order SARS-CoV-2 (PCR) (Negative) Influenza Type A (PCR) (Neg) Influenza Type B (PCR) (Neg) RSV (RT-PCR) (Neg) Imaging Data Chest x-ray: Radiologist's impression: XR chest 2V PA/lateral HISTORY: Atypical Chest Pain COMPARISON: Chest 03/01/2020. FINDINGS: No change in the bilateral calcified pleural plaques. Cardiac silhouette is borderline enlarged. There are poststernotomy changes. No pneumothorax. No pleural effusions. No new focal lung consolidations to suggest pneumonia. No evidence for pulmonary edema. There is mild emphysema. IMPRESSION: No significant change compared to the prior study. No acute process. ACT 112: Negative or not required by law. Electronically signed by: Dav Sorenson M.D. 08/17/2020 11:54 AM Dictated: 08/17/20 1153 Transcribed: 08/17/[address] scan - chest: Radiologist's impression: CHEST CTA for PULMONARY ARTERIES CT DOSE: 332.44 mGy.cm HISTORY: Atypical chest pain. Shortness of breath. TECHNIQUE: Multiaxial CT images of the chest were performed following the intravenous administration of contrast to evaluate the pulmonary arteries. Maximal intensity projection images were also obtained. A dose lowering technique was utilized adhering to the principles of ALARA. COMPARISON STUDY: Chest CT 11/07/2017. FINDINGS: The visualized liver, spleen, and adrenal glands unremarkable. The heart is enlarged. Normal esophagus. No mediastinal hilar lymphadenopathy. No pleural or pericardial effusions. There are poststernotomy changes. 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 No suspicious lytic are blastic osseous lesions. The central airways are patent. No pneumothorax. Mild emphysema. No new focal lung consolidations to suggest pneumonia. There is respiratory motion artifact. This results in nondiagnostic evaluation of the majority of the right lower lobe and right middle lobe segmental/subsegmental pulmonary arteries. However, the remaining pulmonary arteries show no filling defects to suggest pulmonary embolus. Extensive calcified plaque within the proximal left vertebral artery which is likely chronically occluded. This remains unchanged. Normal caliber thoracic aorta with no evidence for dissection. IMPRESSION: 1. No evidence for pulmonary embolus with limitations as described above. 2. 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 4. Cardiomegaly. 5. No focal lung consolidations to suggest pneumonia. ACT 112: Negative or not required by law. Electronically signed by: Dav Sorenson M.D. 08/17/2020 11:47 AM Dictated: 08/17/20 1140 Transcribed: 08/17/20 1140 ECG Data Indication: chest pain Rate (beats per minute): 68 Rhythm: normal sinus Findings: + PVC; no ST depression, no ST elevation and no prolonged QT MDM Narrative Vital signs stable. Labs within normal limits with exception of elevated D- dimer. CTA negative for PE. Patient will be admitted for chest pain rule out ACS given his high heart score. Dr. Brink [facility] hospitalist has been notified. Impression & Plan Chest pain Discharge Plan Visit Data Chief Complaint: Chest Pain ED Provider: Elver Layton Discharge Problem: Chest pain Patient Disposition: Admitted As Inpatient Forms Stand Alone Forms: [facility] Prescriptions Prescriptions: No Action folic acid 1 mg tablet 2 mg PO DAILY Qty: 150 RF: 0 acetaminophen 650 mg tablet extended release 650 mg PO DAILY PRN (Reason: Pain) RF: 0 amlodipine 5 mg tablet 5 mg PO DAILY RF: 0 terazosin 5 mg Capsule 5 mg PO HS RF: 0 metformin 500 mg tablet 500 mg PO BID RF: 0 cyanocobalamin (vitamin B-12) 1,000 mcg Tablet 1,000 mcg PO QAM RF: 0 clopidogrel 75 mg Tablet 75 mg PO QAM RF: 0 aspirin 81 mg Tablet,Delayed Release (Dr/Ec) 81 mg PO HS RF: 0 pantoprazole [Protonix] 40 mg Tablet,Delayed Release (Dr/Ec) 40 mg PO QAM RF: 0 docusate sodium [Colace] 100 mg Capsule 100 mg PO BID RF: 0 finasteride [Proscar] 5 mg Tablet 5 mg PO HS RF: 0 coenzyme Q10 [CoQ-10] 100 mg Capsule 100 mg PO BID RF: 0 rosuvastatin [Crestor] 40 mg Tablet 40 mg PO HS RF: 0 metoprolol tartrate 25 mg Tablet 25 mg PO BID RF: 0 pregabalin [Lyrica] 75 mg Capsule 75 mg PO BID RF: 0 potassium gluconate 550 mg (90 mg) Tablet 550 mg PO QAM RF: 0 nitroglycerin [Nitrostat] 0.4 mg Tablet, Sublingual 0.4 mg sublingual UD PRN (Reason: chest pain) Qty: 1 RF: 0 Referrals Referrals: Abram Garcia [Primary Care Provider] - Discharge Problem: Chest pain Qualifiers: Chest pain type: unspecified Qualified Code(s): R07.9 - Chest pain, unspecified
[2020-08-17] MEDS ORDERED: ACETAMINOPHEN 325 MG TAB ONE (16:09)
[2020-08-17] MEDS ORDERED: GLUCAGON FOR INJ 1 MG VIAL SQ PRN (17:28)
[2020-08-17] MEDS ORDERED: MoRPHine SULFATE 2 MG/ML CARP IV PRN (17:28)
[2020-08-17] MEDS ORDERED: ALUMINUM/MAGNESIUM SUSP 30 ML UDC PO PRN (17:28)
[2020-08-17] MEDS ORDERED: ONDANSETRON INJ 2 MG/ML 2 ML VIAL IV PRN (17:28)
[2020-08-17] MEDS ORDERED: NITROGLYCERIN SL 0.4 MG/TAB TAB SL PRN (17:28)
[2020-08-17] MEDS ORDERED: ACETAMINOPHEN 325 MG TAB PO PRN (17:28)
[2020-08-17] MEDS ORDERED: DEXTROSE 50% 50 ML SYRINGE IV PRN (17:28)
[2020-08-17] MEDS ORDERED: GLUCOSE 40% GEL 15 GM TUBE PO PRN (17:28)
[2020-08-17] MEDS ORDERED: CARBOHYDRATES FOR HYPOGLYCEMIA PO PRN (17:28)
[2020-08-17] MEDS ORDERED: GLUCOSE 10 TABS/TUBE PO PRN (17:28)
[2020-08-17] MEDS: INSULIN ASPART 100 UNITS/ML 3 ML PEN SC SCH ×2 (18:17→20:30)
--- NOTE | 2020-08-17 18:57 | Billing Data ---
Date of Service August 17, 2020 Coding Level of Care Code 31110 Subseq Obs Care Lvl 3
[2020-08-17] MEDS: METOPROLOL TARTRATE 25 MG TAB PO SCH (20:12)
[2020-08-17] MEDS: PREGABALIN 75 MG CAP PO SCH (20:12)
[2020-08-17] MEDS: DOCUSATE SODIUM 100 MG CAP PO SCH (20:13)
[2020-08-17] MEDS: INSULIN GLARGINE SOLOSTAR 100 UNITS/ML 3 ML PEN SC SCH (20:30)
[2020-08-17] MEDS ORDERED: NON-FORMULARY MEDICATION (Coenzyme Q10 [Coq-10] 100 mg Capsule) PO SCH (21:00)
[2020-08-17] MEDS ORDERED: FINASTERIDE 5 MG TAB PO SCH (21:00)
[2020-08-17] MEDS ORDERED: ROSUVASTATIN CALCIUM 20 MG TAB PO SCH (21:00)
[2020-08-17] MEDS ORDERED: ASPIRIN 81 MG ECTAB PO SCH (21:00)
[2020-08-17] MEDS ORDERED: TERAZOSIN HCL 5 MG CAP PO SCH (21:00)
[2020-08-18 06:59] LABS: Basophils # (auto) 0.01 K/uL (0-0.2); Basophils % (auto) 0.2 %; Eosinophils # (auto) 0.17 K/uL (0-0.5); Hematocrit (blood only) 41.6 % (42-52); Lymphocytes # (auto) 1.91 K/uL (1.2-3.4); Lymphocytes % (auto) 34.2 %; Mean Corpuscular Hemoglobin 31.3 pg (25-34); Mean Corpuscular Hgb Conc 33.7 g/dL (32-36); Mean Corpuscular Volume 93.1 fL (80-100); Mean Platelet Volume 11.7 fL (7.4-10.4); Monocytes # (auto) 0.46 K/uL (0.11-0.59); Monocytes % (auto) 8.2 %; Neutrophils # (auto) 3.04 K/uL (1.4-6.5); Neutrophils % (auto) 54.4 %; Platelet Count 149 K/uL (130-400); RDW Coefficient of Variation 13.8 % (11.5-14.5); RDW Standard Deviation 47.2 fL (36.4-46.3); Red Blood Count 4.47 M/uL (4.7-6.1); White Blood Count 5.59 K/uL (4.8-10.8)
[2020-08-18 07:34] LABS: Estimated Average Glucose 126 mg/dl
[2020-08-18 07:41] LABS: BUN Creatinine Ratio 17.8 (10-20); Calcium 9.4 mg/dl (8.5-10.1); Creatinine Clr Calc Pharmacy 80.5 ml/min; Est GFR (African American) 97.6; Est GFR (Non-African American) 84.2; Potassium 3.6 mmol/L (3.5-5.1)
[2020-08-18] MEDS: METOPROLOL TARTRATE 25 MG TAB PO SCH (08:35)
[2020-08-18] MEDS: DOCUSATE SODIUM 100 MG CAP PO SCH (08:36)
[2020-08-18] MEDS: INSULIN GLARGINE SOLOSTAR 100 UNITS/ML 3 ML PEN SC SCH (08:37)
[2020-08-18] MEDS: PREGABALIN 75 MG CAP PO SCH (08:39)
[2020-08-18] MEDS: INSULIN ASPART 100 UNITS/ML 3 ML PEN SC SCH (08:47)
[2020-08-18] MEDS ORDERED: amLODIPine BESYLATE 5 MG TAB PO SCH (09:00)
[2020-08-18] MEDS ORDERED: CLOPIDOGREL BISULFATE 75 MG TAB PO SCH (09:00)
[2020-08-18] MEDS ORDERED: ENOXAPARIN INJ 40 MG/0.4 ML SYR SQ SCH (09:00)
[2020-08-18] MEDS ORDERED: NON-FORMULARY MEDICATION (Potassium Gluconate 550 mg (90 mg) Tablet) PO SCH (09:00)
[2020-08-18] MEDS ORDERED: PANTOprazole 40 MG TAB PO SCH (09:00)
[2020-08-18] MEDS ORDERED: CYANOCOBALAMIN 500 MCG TABLET (VITAMIN B-12) PO SCH (09:00)
[2020-08-18] MEDS ORDERED: FOLIC ACID 1 MG TAB PO SCH (09:00)
[2020-08-18] MEDS ORDERED: POTASSIUM CHLORIDE 10 MEQ TABCR PO SCH (09:00)
--- NOTE | 2020-08-18 09:00 | XCELERA ---
[id number]
--- NOTE | 2020-08-18 10:08 | Discharge Summary ---
Date of Service August 18, 2020 Admission HPI Per Admitting Provider Sean Figueroa is a 85-year-old male with PMH significant for CABG x5 vessels (Initial May 1985, most recently Feb 2016), coronary artery disease, HTN, HLD, T2DM with neuropathy, BPH, GERD, arthritis; who presented to the ED with chest pain on exertion over the last 24 hours. Yesterday while at home, when he was getting up to walk and move around within the house he noticed that he was having a significantly hard time catching his breath, and was finding himself winded more easily. He was also having chest pain/pressure during this time, but thought since he was planning to travel to see his daughter in [place] the next day that it would go away and nothing would be problematic. As he has a home EKG (that he utilizes twice a day normally) he used and saw that the readings "were all over the place and crazy", decided that this must just be something weird and put it off. This morning upon waking and continuing to have this feeling, he realized that he should do something about this, and took an Aspirin told his , and came to the hospital. In the ED he received sublingual nitroglycerin, and full dose Aspirin. He presently has a headache (which he states he gets every time he has to take nitroglycerin), but otherwise feels well with no current chest pain/discomfort/pressure, no shortness of breath, no lightheadedness, no dizziness, no weakness. Principal Diagnosis Chest pain Discharge Exam Constitutional WD/WN, vitals as above Eyes PERRL, conjunctivae normal, anicteric sclerae Respiratory normal respiratory effort; no respiratory distress, no labored breathing, no cough and no audible wheezes Cardiovascular Rate/Rhythm: regular rate and regular rhythm Heart Sounds: no gallop, no murmur and no cardiac rub Vessels: normal peripheral pulses; no JVD Extremities: no edema Gastrointestinal (Abdomen) normal bowel sounds, soft, nontender, no hepatosplenomegaly Skin no rashes, warm and dry Psychiatric Orientation: alert and oriented x 3 Discharge Data Allergies Allergy/AdvReac Type Severity Reaction Status Date / Time hydrocodone AdvReac Unknown Vicodin = Verified 08/17/20 10:07 stroke-like sxs tramadol AdvReac Unknown Stroke-like Verified 08/17/20 10:07 symptoms Consultations 08/17/20 12:00 ED Decision to Admit Stat Ordered Studies 08/17/20 10:16 CT angio chest PE protocol Stat Hospital Course (1) Chest pain, precordial: 85-year-old male with past medical history CABG x5 (Initial May 1985, most recently Feb 2016), coronary artery disease, hypertension, hyperlipidemia, type 2 diabetes with neuropathy, BPH, GERD, arthritis presents with chest pain admitted for rule out. Chest Pain: -EKG on arrival shows sinus rhythm with occasional Premature ventricular complexes. When compared to ECG of January 2019, no ST segment changes were found -Troponin negative x3 -Elevated dimer 1380, subsequent CTA negative for PE in ER -A1c 6.0; lipid panel triglycerides 150, LDL-C 32 -Echo: Estimated EF 60-65%, basal inferior akinesis, normal LV size, mild LVH, mild dilation of RV History of CABGx5/HTN/HLD/CAD: -continue rosuvastatin 40 mg, metoprolol tartrate 25 mg twice daily, clopidogrel 75 mg, aspirin 81 mg, amlodipine 5 mg -addition of Lisinopril 5mg daily -BMP in one week DM2 with neuropathy: -continue home metformin -A1c 6.0 -continue Lyrica 75 mg twice daily BPH: -Continue finasteride 5 mg, Terazosin 5 mg GERD: -Continue pantoprazole 40 mg (2) 3-vessel CAD: Total Time Total Time Spent Total Time Spent (In Minutes): <30 Discharge Plan Discharge Items Patient Disposition: Home - Self-Care Reason For Visit: CP Discharge Diagnosis: Chest pain Activity: Per Instructions section Non-emergency contact: Primary Care Provider and Fire Alarm Dispatcher Call non-emergency contact if: you have any medication questions, your symptoms worsen and your pain is concerning for you Follow-up/Referrals: Abram Garcia [Primary Care Provider] - 08/22/20 10:15 am Diet: Regular, Carb Consistent or DM2 and Heart Healthy Ambulatory Orders: Basic Metabolic Panel (Routine) Timeframe: 1 Week Location: Determined by Patient Ordered By: Anthony Dela Cruz Attending Provider Instructions: You were seen and admitted for concerns of chest pain, and with your extensive cardiac history these types of chest pains should be taken seriously. During this admission, fortunately your chest pain completely resolved, and you did not have demonstrated changes to the electrical activity or structural function of your heart. For additional protection given your extensive heart disease, we are starting you on one additional medication that you should take once a day. With this new medication you will need to have lab work in one week to continue to monitor your kidney function. Pending Studies at Discharge: No Stand-Alone Forms: My [facility], Smoking Cessation Medications and DC Order Prescriptions: New lisinopril 5 mg tablet 5 mg PO DAILY 30 Days Qty: 30 RF: 0 Continued folic acid 1 mg tablet 2 mg PO DAILY Qty: 150 RF: 0 acetaminophen 650 mg tablet extended release 650 mg PO DAILY PRN (Reason: Pain) RF: 0 amlodipine 5 mg tablet 5 mg PO DAILY RF: 0 terazosin 5 mg Capsule 5 mg PO HS RF: 0 metformin 500 mg tablet 500 mg PO BID RF: 0 cyanocobalamin (vitamin B-12) 1,000 mcg Tablet 1,000 mcg PO QAM RF: 0 clopidogrel 75 mg Tablet 75 mg PO QAM RF: 0 aspirin 81 mg Tablet,Delayed Release (Dr/Ec) 81 mg PO HS RF: 0 pantoprazole [Protonix] 40 mg Tablet,Delayed Release (Dr/Ec) 40 mg PO QAM RF: 0 docusate sodium [Colace] 100 mg Capsule 100 mg PO BID RF: 0 finasteride [Proscar] 5 mg Tablet 5 mg PO HS RF: 0 coenzyme Q10 [CoQ-10] 100 mg Capsule 100 mg PO BID RF: 0 rosuvastatin [Crestor] 40 mg Tablet 40 mg PO HS RF: 0 metoprolol tartrate 25 mg Tablet 25 mg PO BID RF: 0 pregabalin [Lyrica] 75 mg Capsule 75 mg PO BID RF: 0 potassium gluconate 550 mg (90 mg) Tablet 550 mg PO QAM RF: 0 nitroglycerin [Nitrostat] 0.4 mg Tablet, Sublingual 0.4 mg sublingual UD PRN (Reason: chest pain) Qty: 1 RF: 0 Discharge Orders: Discharge Order (Routine); Ordered 08/18/20 Ordered By: Anthony Garcia/Other Patient Handouts: High Blood Sugar (Hyperglycemia), Hypoglycemia (Low Blood Sugar), Managing Type 2 Diabetes, Managing Diabetes: The A1C Test Admission Data Admit Date/Time: 08/17/20 13:39 Attending Provider: Daniel Barton Admit Provider: Gabino Martinez Primary Care Provider: Abram Garcia Other Providers: Jose Brink Other Interventions: Discharge Summary Assessment (RN) Last Done: 08/18/20 11:50 Supervising Physician Co-Signing Physician Notes I personally examined the patient and verified all childs points of history and exam, discussed case, and agree with decision making with Dr Martinez and Fred. No further chest pain, generally feeling okay, would like to go home. Believes he was on an CORINNA inhibitor in the past but does not remember why it was stopped, wonders if it was a [facility] Vitals noted, in general he is awake and alert pleasant no distress. HEENT normocephalic atraumatic mucous membranes moist. Breathing unlabored no accessory muscle use good effort. Skin shows no rashes no pallor or icterus. Troponin negative, CT chest noted, EKG with flipped T's V45 and 6, but very similar to the EKG from 2019 Chest painruled out PA. Stable for home, with CADstart CORINNA inhibitor. Basic metabolic panel in a week Bradycardiaasymptomatic and while asleep. With his significant coronary disease benefit of beta blockade outweighs the risk of what was a symptomatic bradycardia while he was asleep. Mild hypercalcemiaoutpatient follow-up Otherwise as above, follow-up primary call center support consultant in the near future as an outpatient Resident Activity Tracking Resident Involvement: Resident Care Provided Care Provided: Adult Hospital Medicine
--- NOTE | 2020-08-18 11:07 | Electrocardiogram Report ---
Test Reason : Blood Pressure : / mmHG Vent. Rate : 055 BPM Atrial Rate : 055 BPM P-R Int : 192 ms QRS Dur : 084 ms QT Int : 442 ms P-R-T Axes : 090 001 006 degrees QTc Int : 422 ms Sinus bradycardia with occasional Premature ventricular complexes possible Inferior infarct , age undetermined Abnormal ECG When compared with ECG of 17-AUG-2020 08:55, Inferior infarct is now Present Confirmed by Agustin Jhaveri ([id number]) on 08/18/2020 11:06:38 AM Referred By: REFERRED SELF Confirmed By:Marcial Jhaveri
--- NOTE | 2020-08-18 19:36 | Billing Data ---
Date of Service August 18, 2020 Coding Level of Care Code 96775 OBS Care - Discharge
== END 2020-08-18 13:43 | disposition home or self-care (01) ==
LOC: ED 08:50 → 2S 08:50

== ENCOUNTER 2024-01-27 05:28 | Observation (INO) ==
--- NOTE | 2024-01-22 14:12 | Anesthesiology Consultation ---
Date of Service January 22, 2024 Assessment & Plan (1) Encounter for pre-operative examination: Chart Review Chart Review: Acceptable Risk for Surgery and Patient NOT seen in Pre Admission Testing -D/W , Re: pt's current cardiac status. Pt stable. Most recent cardio visit 12/17/23: "Patient has noticed some degree of symptom improvement on increased metoprolol. Also now dealing with prostate issues. On exam today no signs of heart failure." 12/04/23 ECHO (EF 45-50%) and 09/13/23 Lexiscan Stress (Small mild apical-lateral partially reversible perfusion defect with normal wall motion: likely artifact versus small infarct with minimal raquel-infarct ischemia. Normal LV size and function, LVEF 57% with paradoxical septal motion. Frequent PVCs with Lexiscan) reviewed at visit. Cardio approved pt to hold Plavix x 5 days prior to procedure. Infectious Disease screening: Per PAT nursing assessment on 01/22/24, No known infectious disease contacts in past 10 days or current infectious disease symptoms. No recent travel outside the country. History Surgery Operation Date: 01/27/24 07:15 Proposed Procedures p TURP (Transurethral Resection Prostate) - Abdulaziz Pisano, Height/Weight Height: 6 ft Weight: 77.111 kg Allergies Allergy/AdvReac Type Severity Reaction Status Date / Time hydrocodone AdvReac Mild Vicodin = Verified 01/22/24 09:56 stroke-like sxs tramadol AdvReac Mild Stroke-like Verified 01/22/24 09:56 symptoms Medications Home Medications Medication Instructions Recorded Confirmed Last Taken aspirin 81 mg tablet,delayed 81 mg PO HS 01/29/19 01/22/24 08/16/20 release clopidogrel 75 mg tablet 75 mg PO QAM 01/29/19 01/22/24 01/29/19 coenzyme Q10 100 mg capsule 100 mg PO BID 01/29/19 01/22/24 08/16/20 (CoQ-10) cyanocobalamin (vitamin B-12) 1,000 mcg PO QAM 01/29/19 01/22/24 01/29/19 1,000 mcg tablet docusate sodium 100 mg capsule 100 mg PO BID 01/29/19 01/22/24 01/29/19 (Colace) finasteride 5 mg tablet (Proscar) 5 mg PO HS 01/29/19 01/22/24 01/28/19 metformin 500 mg tablet 500 mg PO BID 01/29/19 01/22/24 08/16/20 pantoprazole 40 mg tablet,delayed 40 mg PO QAM 01/29/19 01/22/24 08/16/20 release (Protonix) pregabalin 75 mg capsule (Lyrica) 75 mg PO BID 01/29/19 01/22/24 01/29/19 rosuvastatin 40 mg tablet (Crestor) 40 mg PO HS 01/29/19 01/22/24 01/29/19 nitroglycerin 0.4 mg sublingual 0.4 mg sublingual UD PRN chest 01/30/19 01/22/24 Unknown tablet (Nitrostat) pain #1 btl acetaminophen 650 mg 650 mg PO DAILY PRN Pain 02/03/19 01/22/24 Unknown tablet,extended release amlodipine 5 mg tablet 5 mg PO HS 02/03/19 01/22/24 Unknown folic acid 1 mg tablet 2 mg PO DAILY #150 tabs 02/03/19 01/22/24 08/16/20 gabapentin 300 mg capsule 300 mg PO BID 04/03/23 01/22/24 Unknown potassium chloride 10 mEq 10 meq PO DAILY 04/03/23 01/22/24 Unknown tablet,extended release metoprolol succinate 50 mg 50 mg PO BID #60 tabs 01/13/24 01/22/24 Unknown tablet,extended release 24 hr (Toprol XL) cholecalciferol (vitamin D3) 100 2,000 unit PO DAILY 01/22/24 01/22/24 Unknown mcg (4,000 unit) capsule losartan 25 mg tablet 25 mg PO QAM 01/22/24 01/22/24 Unknown lutein 10 mg tablet 10 mg PO DAILY 01/22/24 01/22/24 Unknown solifenacin 5 mg tablet (Vesicare) 5 mg PO QAM 01/22/24 01/22/24 Unknown tamsulosin 0.4 mg capsule (Flomax) 0.4 mg PO QPM 01/22/24 01/22/24 Unknown terazosin 5 mg tablet 5 mg PO HS 01/22/24 01/22/24 Unknown vitamins A,C,S-vyqs-cxjeov 4,296 1 cap PO BID 01/22/24 01/22/24 Unknown mcg-226 mg-90 mg capsule (PreserVision AREDS) Past Medical History Medical History (Updated 01/22/24 @ 13:56 by Nakia Piña PA-C) Arthritis BPH (benign prostatic hyperplasia) CAD (coronary artery disease) s/p multiple prior PCIs, redo CABG 02/2016, widely patent grafts 10/2016 DM type 2 (diabetes mellitus, type 2) Dyspnea on exertion improved since increase of BB 2022 Esophagitis Frequent PVCs 12% on holter 02/2023 GERD (gastroesophageal reflux disease) Hematuria recent, had mckenzie cath in that had clots, no longer has History of CVA (cerebrovascular accident) (1999) no deficits- Hx of carotid artery stenosis s/p L CEA Hx-TIA (transient ischemic attack) per chart, pt. denies Hyperlipidemia Hypertension Ischemic cardiomyopathy EF 45-50% ECHO 11/2023 Lumbar radiculopathy Mild cognitive impairment PAD (peripheral artery disease) s/p L SFA stent 2012, b/l LE angioplasty 2021, L CEA, R carotid bruit present Stable angina stable CCS class 2 angina (per Cardio) Past Family History Family History Denies family history of Myocardial infarction Past Surgical History Surgical History (Updated 01/22/24 @ 13:49 by Nakia Piña PA-C) History of carotid endarterectomy left, [place], > 30 years ago History of lumbar surgery dr. bashir, plates placed, L4-L6 Hx of angioplasty b/l LE Hx of arterial bypass of lower limb right leg Hx of CABG 2 vessel CABG 1985 (CLARKE to LAD, vein graft to Cx), 2016 redo bypass surgery with vein graft to OM, vein graft to distal RCA Hx of cardiac catheterization Multiple; multple stents in RCA (later had CABG with vein graft to distal RCA) Hx of vasectomy Social History Smoking Status: Former smoker Do You Dip or Chew Tobacco: No Smoking End Date: 45 years ago Hx Alcohol Use: Yes Alcohol type: hard liquor alcohol intake frequency: holidays/special occasions only Hx Substance Use: No substance use type: does not use Lab Results Anesthesia Preop Results Results Anesthesia Widget: WBC 7.65 K/ul (4.8-10.8) 01/21/24 Hgb 13.2 g/dl (14.0-18.0) L 01/21/24 Hct 40.2 % (42.0-52.0) L 01/21/24 Plt 127 K/uL (130-400) L 01/21/24 Na 137 mmol/L (136-145) 01/21/24 K 4.1 mmol/L (3.5-5.1) 01/21/24 Cl 104 mmol/L (98-107) 01/21/24 CO2 28 mmol/L (21-32) 01/21/24 BUN 14 mg/dl (6-23) 01/21/24 Creat 0.79 mg/dl (0.6-1.4) 01/21/24 Glucose Level 99 mg/dl (70-99(Fasting)) 01/21/24 Urine Color Red 01/13/24 Urine Appearance Cloudy (Clear) A 01/13/24 Urine pH 7.5 (4.5-7.5) 01/13/24 Urine Specific [place] 1.012 (1.000-1.030) 01/13/24 Urine Protein 2+ (Negative) H 01/13/24 Urine Glucose (UA) Negative (Negative) 01/13/24 Urine Ketones Negative (Negative) 01/13/24 Urine Blood 3+ (Negative) H 01/13/24 Urine Nitrite Negative (Negative) 01/13/24 Urine Bilirubin Negative (Negative) 01/13/24 Urine Urobilinogen Negative (Negative) 01/13/24 Urine Leukocyte Esterase 3+ (Negative) H 01/13/24 Urine WBC (Auto) >50 /hpf (0-5) H 01/13/24 Urine RBC (Auto) >20 /hpf (0-2) H 01/13/24 Urine Hyaline Casts (Auto) 3-5 /lpf (0-2) H 01/13/24 Urine Epithelial Cells (Auto) 0-2 /hpf (0-2) 01/13/24 Urine Bacteria (Auto) 4+ (None Seen) H 01/13/24 Testing Laboratory Results 01/21/24: urine culture: no growth. (preliminary report) Echocardiogram Date: 12/04/23 EF: 45-50% normal LV size. mild cLVH. abnormal septal motion. normal RV size and function. Moderate MR. Mild TR. LA moderately dilated. RA moderately dilated. Compared to 09/02/23, no significant changes. Stress Test Date: 09/13/23 Type: nuclear SUMMARY: 1. Low risk myocardial perfusion study. 2. Small mild apical-lateral partially reversible perfusion defect with normal wall motion. Likely artifact versus small infarct with minimal raquel-infarct ischemia. 3. Normal LV size and function. LVEF 57% with paradoxical septal motion. 4. Non-diagnostic stress ECG due to inability to reach target HR with Lexiscan. 5. Frequent PVCs with Lexiscan Other Testing Abd/Pelvis CT 11/25/23: FINDINGS: Lung bases: Moderate cardiomegaly and mild vascular prominence, nonspecific, may be chronic, cannot rule out mild CHF. Diaphragm calcification and pleural thickening, compatible with asbestos-related disease. Liver: Unremarkable. Gallbladder and bile ducts: Cholecystectomy. No ductal dilation. Pancreas: No ductal dilation. Spleen: Unremarkable. Adrenals: Unremarkable. Kidneys and ureters: Left renal cyst and mild bilateral perinephric edema. No pyelonephritis or hydronephrosis. Stomach and bowel: No obstruction. Moderate to severe fecal loading of the colon. Diverticulosis without acute diverticulitis. Appendix: Normal. Intraperitoneal space: Mild fluid right lower quadrant adjacent to the bladder, may be secondary to bladder inflammation. No free air or significant ascites. Bones/joints: Degenerative and postsurgical change and metal artifact from bilateral pedicle screws at L3 and L4. No acute fracture. Soft tissues: Fat-containing right inguinal hernia. Vasculature: Severe atherosclerosis and moderate ectasia. No aortic aneurysm. Lymph nodes: Nonspecific, nonenlarged right pelvic lymph nodes. No enlarged lymph nodes. Bladder: Mckenzie catheter in a fairly collapsed bladder, though there is severe wall thickening and a 4.5 cm mass in the posterior urinary bladder, probably reflects indentation by the prostate gland. Neoplasm not excluded. Also, suspect cystitis, correlate clinically. Reproductive: Severe prostatomegaly. IMPRESSION: 1. Severe urinary bladder wall thickening, prostatomegaly and mass extending into the urinary bladder. Findings are nonspecific, probable cystitis, neoplasm not excluded. Cardiac Catheterization 10/2016 (per 12/17/23 Cardio note): Occluded mid LAD, 75 percent ostial circumflex, 55 percent proximal om 2? RCA completely occluded at the ostium. SVG to PAV widely patent (retro fills PDA with 40 percent ostial PDA disease), SVG to OM 2 widely patent
[2024-01-27] MEDS: LR 15ML/HR IV SCH (06:24)
[2024-01-27] MEDS ORDERED: ATROPINE SULFATE 0.1 MG/ML 10ML SYR IV PRN (06:44)
[2024-01-27] MEDS ORDERED: fentaNYL citrate PF 100 MCG/2 ML VIAL ONE (06:45)
[2024-01-27] MEDS ORDERED: PROPOFOL IV EMULSION 10 MG/ML 20 ML VIAL IV ONE (06:47)
[2024-01-27] MEDS ORDERED: ONDANSETRON INJ 2 MG/ML 2 ML VIAL ONE (06:47)
[2024-01-27] MEDS ORDERED: LIDOCAINE 2% 2 ML VIAL/AMP(20MG/ML) INFIL ONE (06:47)
[2024-01-27] MEDS ORDERED: MoRPHine SULFATE 2 MG/ML CARP IV PRN (06:52)
[2024-01-27] MEDS ORDERED: PHENAZOPYRIDINE HCL 200 MG TAB PO PRN (06:52)
[2024-01-27] MEDS ORDERED: ONDANSETRON INJ 2 MG/ML 2 ML VIAL IV PRN (06:52)
[2024-01-27] MEDS ORDERED: oxyCODONE/ACETAMINOPHEN 5mg/325mg TAB PO PRN (06:52)
[2024-01-27] MEDS ORDERED: oxyBUTYnin chloride 5 MG TAB PO PRN (06:52)
--- NOTE | 2024-01-27 06:52 | History & Physical Bridge Note ---
Date of Service January 27, 2024 History & Physical Bridge Note I have examined the patient, reviewed the History & Physical and in the interval since the performance of the History & Physical I have noted the following changes of clinical significance: no changes noted
[2024-01-27] MEDS: ceFAZolin 2000MG 2,000 MG/15 ML SYR IV SCH ×2 (07:04→16:16)
[2024-01-27] MEDS ORDERED: PHENYLEPHRINE 100MCG/ML 10ML SYR IV ONE (07:47)
[2024-01-27] MEDS ORDERED: PHENYLEPHRINE HCL 10 MG/ML VIAL ONE (08:57)
--- NOTE | 2024-01-27 09:53 | Operative Report ---
PG Post Operative Report Pre & Post Diagnosis Operation Date: 01/27/24 07:15 Pre-Op Diagnosis: Acute Urinary Retention Post-Op Diagnosis: Acute Urinary Retention I identified the patient and participated in the time-out.: Yes Procedure Operation Date: 01/27/24 07:15 Actual Procedures TURP (Transurethral Resection of the Prostate) and Extraction of bladder stones - Abdulaziz Pisano DO Surgeon Abdulaziz Pisano, II, DO [employer] Forester None Estimated Blood Loss 20 Findings Consistent with Post-Op Diagnosis Large Prostate with obstruction. Innumerable small bladder stones within base of bladder Specimens Prostate adenoma. Drains 24 Fr 3 WayCatheter Anesthesia Type General Complications none Disposition Disposition: Recovery Room Indications Patient with obstruction due to prostate enlargement. Risks and benefits discussed at length. Description of Procedure Patient was consented and brought back to the operating room. Patient was placed under anesthesia in the supine position and moved to the dorsal lithotomy position. Patient was prepped and draped in the regular sterile fashion. A time out was completed. A 30degree Cystoscope was placed into the bladder and the entire bladder was examined. The UO's were identified as well as the bladder neck, trigone, dome, and the other important landmarks. The prostatic urethra and large lobes/adenoma was assessed and the veru and bladder neck identified and area/size was assessed. The resection scope was placed and the fine bipolar loop was selected. The prostate was massively enlarged with significant projection of the lateral and median lobe into the bladder. There was innumerable small stones and calcifications throughout the base of the bladder. The stone material was extracted and attempted to be removed. A large amount of the was able to be taken out. Starting at the 5 and 7 o'clock positions, a channel was created from bladder neck to the veru. The extremely large median lobe was able to be resected. A portion of it was enucleated. This piece of prostate had to be resected further and extracted. After this was cleared to the channel improved flow through the prostate. Starting at the 1 in 11 o'clock position the extremely large lateral lobes were then resected. Throughout the process numerous chips were able to be irrigated clear. A Silvia was utilized. Additionally small stone fragments were able to be extracted with this. A massive amount of prostate had to be resected in order to open the channel. Areas of bleeding were cauterized/fulgurated throughout the process. Additionally there was some areas of irritation within the bladder that had to be appear to be related to the small stones within the base of the bladder. The Specimen was removed and sent for analysis. The resection bed and any bleeding areas were fulgurated/cauterized and the entire area inspected. All bleeding was controlled. The bladder was inspected a final time. The bladder was emptied and irrigated. All specimen and debris was removed. The scope was removed with the bladder partially full. A catheter was placed and balloon elevated. This was easily irrigated. Continuous irrigation was then initiated. The patient was cleaned, aroused from anesthesia, and transferred to the pacu in stable condition having tolerated the procedure well with no complications. I was present and participated in all aspects of the procedure. The patient will be monitored in the PACU until transferred. Will plan to observe patient overnight with continuous bladder irrigation. I attest to the content of the Intraoperative Record and any orders documented therein. Any exceptions are noted below.
[2024-01-27] MEDS: fentaNYL citrate PF 100 MCG/2 ML VIAL IV PRN (10:16)
[2024-01-27] MEDS: ONDANSETRON INJ 2 MG/ML 2 ML VIAL IV PRN (10:43)
[2024-01-27] MEDS: KETOROLAC 30 MG/ML VIAL IV PRN (10:45)
[2024-01-27 10:53] LABS: Albumin Globulin Ratio 1.7 (0.9-2); Albumin Level 3.1 gm/dl (3.4-5.0); Bilirubin,Total 0.5 mg/dl (0.2-1.0); Calcium 8.3 mg/dl (8.6-10.3); Creatinine Clr Calc Pharmacy 82.6 ml/min; Est GFR (African American) 98.9 ml/min; Est GFR (Non-African American) 85.4 ml/min; Globulin 1.8 gm/dl (2.5-4.0); Potassium 3.7 mmol/L (3.5-5.1); Total Protein 4.9 gm/dl (6.0-8.3)
--- NOTE | 2024-01-27 11:09 | Anesthesiology Progress Note ---
Date of Service January 27, 2024 Anesthesia Post Procedure Vital Signs Vital Signs: Temp Pulse Pulse Resp BP Pulse Ox O2 Del Method 01/27/24 10:50 59 L 18 164/79 H 100 Nasal Cannula 01/27/24 10:40 66 20 164/54 H 100 Nasal Cannula 01/27/24 10:30 66 23 159/85 H 96 Nasal Cannula 01/27/24 10:20 63 18 175/80 H 100 Nasal Cannula 01/27/24 10:10 66 21 162/70 H 94 Room Air 01/27/24 10:00 36.5 C 58 L 15 98/50 L 94 Room Air 01/27/24 06:00 36.7 C 72 20 94 Room Air O2 Flow Rate 01/27/24 10:50 3 01/27/24 10:40 3 01/27/24 10:30 3 01/27/24 10:20 3 01/27/24 10:10 01/27/24 10:00 01/27/24 06:00 Pain Intensity Penis: Pain Intensity: 4 Transfer of Care Handoff Completed per policy Notes Mental Status: alert / awake / arousable Patient Amnestic to Procedure: Yes Nausea / Vomiting: adequately controlled Pain: adequately controlled Airway Patency, RR, SpO2: stable & adequate BP & HR: stable & adequate Hydration State: stable & adequate Anesthetic Complications: no major complications apparent
[2024-01-27] MEDS: SODIUM CHLORIDE 0.9% 1,000 ML IV SCH (15:26)
[2024-01-27] MEDS: DOCUSATE SODIUM 100 MG CAP PO SCH (15:32)
[2024-01-28 07:51] VITALS: BP 163/74; RESP 18; TEMP 98.2; O2SAT 95
--- NOTE | 2024-01-28 07:52 | Urology Progress Note ---
Date of Service January 28, 2024 Assessment & Plan (1) Benign prostatic hyperplasia with urinary obstruction: Plan: - Pt POD#1 s/p TURP with Dr. Hicks - Doing well, progressing as expected - Afebrile, lab work reviewed - creatinine 0.69, WBC 7.65, Hgb 13.2 - Tolerating PO diet - 3 way Corado catheter intact, patent and draining clear urine with CBI on slow - CBI clamped during exam, will reassess later this am - Maintain Corado catheter - Anticipate home with Corado catheter later today presuming urine appropriate and he continues to progress as expected - Course of antibiotics sent - Plan to resume aspirin and Plavix tomorrow if urine remains clear - Expected clinical course reviewed, all questions answered - Will arrange outpatient follow-up with our service for voiding trial Admission and Anticipated Discharge Date Admission Date: January 27, 2024 Subjective Patient seen and examined at bedside this morning. He is awake and sitting up on the bedside commode. No issues overnight. Denies pain. Corado patent and draining clear urine with CBI on slow. CBI clamped at time of exam. Denies nausea, vomiting, fever or chills. Review of Systems Constitutional: as per Subjective / HPI Genitourinary: + as per Subjective / HPI Physical Exam Constitutional: well developed and well nourished; no acute distress Respiratory: normal respiratory effort; no respiratory distress and no labored breathing Gastrointestinal (Abdomen): Inspection/Auscultation: abdomen normal to inspection Musculoskeletal: Head/Neck/Chest: normocephalic Neurologic: moves all extremities and awake Psychiatric: Orientation: alert and oriented x 3 Genitourinary: Corado patent and draining clear urine with CBI on slow. CBI clamped at time of exam. Results & Data Vital Signs (Past 12 Hours) Vital Signs Temp Pulse Pulse Resp BP Pulse Ox O2 Del Method 01/28/24 07:21 79 01/28/24 05:14 37.1 C 82 20 139/57 L 92 Room Air 01/28/24 00:20 36.8 C 87 20 131/78 95 Room Air 01/27/24 22:12 72 01/27/24 20:07 36.3 C L 66 18 122/58 L 95 Room Air PG Care Time/CCT Total # of Minutes Spent Total Time Spent with Patient: Total time spent is greater than 50% in coordination of care (as documented) at patient's floor/unit and/or counseling patient: Coding Level of Care Code None Diagnoses Benign prostatic hyperplasia with urinary obstruction N40.1; N13.8
--- NOTE | 2024-01-28 11:20 | Discharge Summary ---
Date of Service January 28, 2024 Admission HPI Per Admitting Provider Patient with BPH with obstruction here for transurethral resection of prostate Admission Exam Per Admitting Provider General: Alert in no acute distress. HEENT: Normocephalic Atraumatic. Inspection normal. Psychologic: Normal affect. Respiratory: Nonlabored. Cardiovascular: No tachycardia Skin: [place] and Dry. Principal Diagnosis BPH with obstruction Discharge Exam Constitutional well developed and well nourished; no acute distress Respiratory normal respiratory effort; no respiratory distress and no labored breathing Gastrointestinal (Abdomen) Inspection/Auscultation: abdomen normal to inspection Musculoskeletal Head/Neck/Chest: normocephalic Neurologic moves all extremities and awake Psychiatric Orientation: alert and oriented x 3 Genitourinary Corado patent and draining clear urine after clamp trial Discharge Data Allergies Allergy/AdvReac Type Severity Reaction Status Date / Time hydrocodone AdvReac Mild Vicodin = Verified 01/27/24 05:59 stroke-like sxs tramadol AdvReac Mild Stroke-like Verified 01/27/24 05:59 symptoms Procedures Performed Operation Date: 01/27/24 07:15 Actual Procedures p TURP (Transurethral Resection of the Prostate)(Not Applicable) - Abdulaziz Pisano, DO Hospital Course (1) Benign prostatic hyperplasia with urinary obstruction: - Pt POD#1 s/p TURP with Dr. Hicks - Doing well, progressing as expected - Afebrile, lab work reviewed - creatinine 0.69, WBC 7.65, Hgb 13.2 - Tolerating PO diet - 3 way Corado catheter intact, patent and draining clear urine with CBI on slow - CBI clamped during exam, will reassess later this am - Maintain Corado catheter - Anticipate home with Corado catheter later today presuming urine appropriate and he continues to progress as expected - Course of antibiotics sent - Plan to resume aspirin and Plavix tomorrow if urine remains clear - Expected clinical course reviewed, all questions answered - Will arrange outpatient follow-up with our service for voiding trial Total Time Total Time Spent Total Time Spent (In Minutes): 20 Discharge Plan Discharge Items Patient Disposition: Home - Self-Care Reason For Visit: BPH WITH OBSTRUCTION Discharge Diagnosis: BPH with obstruction Activity: Per Instructions section Lifting: No more than 25 pounds Bathing Comment: Okay to shower after discharge, no tub bath or soaking Sexual Activity: Wait until after follow-up appointment Exercise/Sports: Wait until after follow-up appointment Driving/Machine Use: No driving while taking prescription pain medication Non-emergency contact: Surgeon and Urologist Call non-emergency contact if: your pain is not controlled, you have a fever and your temperature is above 101 Follow-up/Referrals: Abdulaziz Pisano DO [Physician] - 02/05/24 11:30 am Abram Garcia [Primary Care Provider] - Diet: Regular, Carb Consistent or DM2 and Heart Healthy Addtl Attending Provider Instructions: Please take all medications as prescribed and keep all follow-ups as scheduled. Please call our office at [phone] with any questions, concerns or need to reschedule appointments for any reason. We are happy to assist you. You can resume your aspirin and Plavix tomorrow if your urine is clear yellow to light pink. Tips for your recovery at home: Dont be alarmed by brownish or reddish blood or clots in your urine. This is a result of the procedure. This may occur off and on for weeks to months after the procedure but should continue to improve. Drink plenty of fluids during the day (enough to keep your urine very light colored). This will help keep a healthy flow of urine. Do not lift >25 lbs until your followup Avoid constipation. Please use a stool softener (Colace) for the first two weeks after your procedure Be sure to finish the antibiotics as prescribed. If you go home with a catheter, please wash tubing where it enters your body twice daily with mild soap (Dove or Dial). Once your catheter is removed, expect some blood in your urine and some burning when you urinate. You should have an appointment to have this removed, if you do not please call our office to arrange. Pending Studies at Discharge: Yes Stand-Alone Forms: My Mingly, Smoking Cessation Medications and DC Order Prescriptions: New cephalexin 500 mg capsule 500 mg PO BID 7 Days Qty: 14 0RF Continued metoprolol succinate [Toprol XL] 50 mg tablet extended release 24 hr 50 mg PO BID Qty: 60 2RF gabapentin 300 mg capsule 300 mg PO BID potassium chloride 10 mEq tablet extended release 10 meq PO DAILY folic acid 1 mg tablet 2 mg PO DAILY Qty: 150 acetaminophen 650 mg tablet extended release 650 mg PO DAILY PRN (Reason: Pain) amlodipine 5 mg tablet 5 mg PO HS Rx Instructions: take with protonix at 1200 metformin 500 mg tablet 500 mg PO BID cyanocobalamin (vitamin B-12) 1,000 mcg Tablet 1,000 mcg PO QAM clopidogrel 75 mg Tablet 75 mg PO QAM aspirin 81 mg Tablet,Delayed Release (Dr/Ec) 81 mg PO HS Rx Instructions: take 2 tablets at bedtime pantoprazole [Protonix] 40 mg Tablet,Delayed Release (Dr/Ec) 40 mg PO QAM Rx Instructions: take at 1200 docusate sodium [Colace] 100 mg Capsule 100 mg PO BID finasteride [Proscar] 5 mg Tablet 5 mg PO HS coenzyme Q10 [CoQ-10] 100 mg Capsule 100 mg PO BID rosuvastatin [Crestor] 40 mg Tablet 40 mg PO HS pregabalin [Lyrica] 75 mg Capsule 75 mg PO BID nitroglycerin [Nitrostat] 0.4 mg Tablet, Sublingual 0.4 mg sublingual UD PRN (Reason: chest pain) Qty: 1 0RF Rx Instructions: may use [id number] for chest pain, max 3 tablets in 15 minutes. tamsulosin [Flomax] 0.4 mg capsule 0.4 mg PO QPM losartan 25 mg tablet 25 mg PO QAM solifenacin [Vesicare] 5 mg tablet 5 mg PO QAM PreserVision AREDS 4,296 mcg-226 mg-90 mg Capsule 1 cap PO BID lutein 10 mg Tablet 10 mg PO DAILY Rx Instructions: give with meal/snack terazosin 5 mg Tablet 5 mg PO HS cholecalciferol (vitamin D3) 100 mcg (4,000 unit) Capsule 2,000 unit PO DAILY Discharge Orders: Discharge Order (Routine); Ordered 01/28/24 Ordered By: Ca Pelletier Admission Data Admit Date/Time: 01/27/24 06:52 Attending Provider: Abdulaziz Pisano Admit Provider: Abdulaziz Pisano Primary Care Provider: Abram Garcia Other Interventions: Discharge Summary Assessment (RN) Last Done: 01/28/24 11:43 Coding Level of Care Code 43319 IN/OBS DISCH 30 MIN/LESS Diagnoses Benign prostatic hyperplasia with urinary obstruction N40.1; N13.8
[2024-01-28 11:44] VITALS: PULSE 72
== END 2024-01-28 12:27 | disposition home or self-care (01) ==
LOC: ASU 05:28 → PACUINP 05:28 → 2W 15:26